=== PATIENT | male | born 1965 | race Caucasian/White ===

== ENCOUNTER 2018-07-31 06:02 | Inpatient (IN) | payer OTHER ==
[~2018-07-31] VITALS: Ht 170.2 cm; Wt 82.6 kg
[2018-07-31 06:44] LABS: BASO # 0.1 x10^3/uL (0.0-0.2); BASO % 1 % (0-3); EOS # 0.4 x10^3/uL (0.0-0.7); EOS % 2 % (0-3); HEMATOCRIT 50.8 % (39.0-53.0); HEMOGLOBIN 17.6 g/dL (13.0-17.5); LYMPH # 2.7 x10^3/uL (1.0-4.8); LYMPH % 17 % (24-48); MEAN CORPUSCULAR HEMOGLOBIN 31 pg (25-35); MEAN CORPUSCULAR HGB CONC 35 g/dL (31-37); MEAN CORPUSCULAR VOLUME 90 fL (79-100); MONO # 1.1 x10^3/uL (0.0-1.1); MONO % 7 % (0-9); NEUT # 11.7 x10^3uL (1.8-7.7); NEUT % 74 % (31-73); PLATELET COUNT 327 x10^3/uL (140-400); RED BLOOD COUNT 5.63 x10^6/uL (4.30-5.70); RED CELL DISTRIBUTION WIDTH 13.7 % (11.5-14.5)
[2018-07-31] MEDS ORDERED: ASPIRIN CHEWABLE 81 MG TABLET. PO ONE (06:45)
[2018-07-31] MEDS ORDERED: IV NORMAL SALINE 1000ML BAG 1,000 ML IV SCH (06:45)
[2018-07-31 06:47] LABS: CALCIUM 9.1 mg/dL (8.5-10.1); GFR 78.2; POTASSIUM 3.7 mmol/L (3.5-5.1)
--- NOTE | 2018-07-31 06:52 | RAD ---
PROCEDURE: PORTABLE CHEST 1V CLINICAL INDICATION: CHEST PAIN COMPARISON: None FINDINGS: No pneumothorax identified. Cardiac and mediastinal contours unremarkable. No pulmonary consolidation or acute airspace disease. No acute osseous abnormalities identified. IMPRESSION: No pulmonary consolidation or acute airspace disease. Electronically signed by: Leeroy Steele DO (07/31/2018 6:49 AM) [facility]
[2018-07-31 06:53] LABS: ALBUMIN/GLOBULIN RATIO 1.1 (1.0-1.7); MAGNESIUM 1.9 mg/dL (1.8-2.4); TOTAL BILIRUBIN 0.7 mg/dL (0.2-1.0); TOTAL PROTEIN 7.5 g/dL (6.4-8.2)
--- NOTE | 2018-07-31 06:59 | EKG ---
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
--- NOTE | 2018-07-31 07:23 | PHYS DOC ---
Past Medical History Past Medical History: Hypertension Past Surgical History: No Surgical History Alcohol Use: Occasionally Drug Use: None Adult General Chief Complaint Chief Complaint: CHEST PAIN HPI HPI Patient is a 53-year-old male who presents with complaint of chest pain and shortness of breath that started this morning between 3 and 4 AM. Patient states that his worst symptom is really the shortness of breath and states that before getting here he had gotten very short of breath at rest, feeling like he was not able to get enough air in. He indicates that the pain has been intermittent, lasting typically only a few seconds at a time and would spontaneously resolved. He states that the shortness of breath was not due to pain. He states that symptoms were worsened with just getting up and moving around in the house. He denies any nausea, vomiting or diaphoresis. He also denies any lower extremity pain or swelling. He denies cough or fever. Patient states that nothing improves his symptoms. Currently he denies any chest pain but states that at its worst it was about a 5 out of 10. Review of Systems Review of Systems Constitutional: Denies fever or chills [] Respiratory: Denies cough. Complains of shortness of breath [] Cardiovascular: No additional information not addressed in HPI [] GI: Denies abdominal pain, nausea, vomiting or diarrhea [] Musculoskeletal: Denies back pain or joint pain [] Integument: Denies rash or skin lesions [] All other systems were reviewed and found to be within normal limits, except as documented in this note. Current Medications Current Medications Current Medications Medications (Trade) Dose Ordered Sig/[facility] Start Time Stop Time Status Last Admin Dose Admin Aspirin (Children'S Aspirin) 324 mg 1X ONCE 07/31/18 06:45 07/31/18 06:46 DC 07/31/18 06:48 324 MG Sodium Chloride 1,000 ml @ 100 mls/hr Q10H 07/31/18 06:45 07/31/18 16:44 07/31/18 06:48 100 MLS/HR Allergies Allergies Allergies Coded Allergies Type Severity Reaction Last Updated Verified Penicillins Allergy Unknown 07/31/18 Yes Physical Exam Physical Exam Constitutional: Well developed, well nourished, no acute distress, non-toxic appearance. [] HENT: Normocephalic, atraumatic, bilateral external ears normal, oropharynx moist, no oral exudates, nose normal. [] Eyes: PERRLA, EOMI, conjunctiva normal, no discharge. [] Neck: Normal range of motion, no tenderness, supple, no stridor. [] Cardiovascular: Regular rate and rhythm[] Lungs & Thorax: Bilateral breath sounds clear to auscultation [] Abdomen: Bowel sounds normal, soft, no tenderness. [] Skin: Warm, dry, no erythema, no rash. [] Extremities: No tenderness, no cyanosis, no clubbing, ROM intact, no edema. [] Neurologic: Alert and oriented X 3, no focal deficits noted. [] Current Patient Data Vital Signs Vital Signs Date Time Temp Pulse Resp B/P (MAP) Pulse Ox O2 Delivery O2 Flow Rate FiO2 07/31/18 07:14 86 13 184/98 (126) 98 Room Air 07/31/18 06:07 98.6 98.6 Lab Values Laboratory Tests Test 07/31/18 06:09 White Blood Count 16.0 x10^3/uL (4.0-11.0) H Red Blood Count 5.63 x10^6/uL (4.30-5.70) Hemoglobin 17.6 g/dL (13.0-17.5) H Hematocrit 50.8 % (39.0-53.0) Mean Corpuscular Volume 90 fL (79-100) Mean Corpuscular Hemoglobin 31 pg (25-35) Mean Corpuscular Hemoglobin Concent 35 g/dL (31-37) Red Cell Distribution Width 13.7 % (11.5-14.5) Platelet Count 327 x10^3/uL (140-400) Neutrophils (%) (Auto) 74 % (31-73) H Lymphocytes (%) (Auto) 17 % (24-48) L Monocytes (%) (Auto) 7 % (0-9) Eosinophils (%) (Auto) 2 % (0-3) Basophils (%) (Auto) 1 % (0-3) Neutrophils # (Auto) 11.7 x10^3uL (1.8-7.7) H Lymphocytes # (Auto) 2.7 x10^3/uL (1.0-4.8) Monocytes # (Auto) 1.1 x10^3/uL (0.0-1.1) Eosinophils # (Auto) 0.4 x10^3/uL (0.0-0.7) Basophils # (Auto) 0.1 x10^3/uL (0.0-0.2) D-Dimer (Naima) 0.30 ug/mlFEU (0.00-0.50) Sodium Level 140 mmol/L (136-145) Potassium Level 3.7 mmol/L (3.5-5.1) Chloride Level 100 mmol/L (98-107) Carbon Dioxide Level 27 mmol/L (21-32) Anion Gap 13 (6-14) Blood Urea Nitrogen 15 mg/dL (8-26) Creatinine 1.0 mg/dL (0.7-1.3) Estimated GFR (Cockcroft-Gault) 78.2 BUN/Creatinine Ratio 15 (6-20) Glucose Level 108 mg/dL (70-99) H Calcium Level 9.1 mg/dL (8.5-10.1) Magnesium Level 1.9 mg/dL (1.8-2.4) Total Bilirubin 0.7 mg/dL (0.2-1.0) Aspartate Amino Transferase (AST) 27 U/L (15-37) Alanine Aminotransferase (ALT) 42 U/L (16-63) Alkaline Phosphatase 103 U/L (46-116) Troponin I Quantitative < 0.017 ng/mL (0.000-0.055) UP-Adf-A-Type Natriuretic Peptide 69 pg/mL (0-124) Total Protein 7.5 g/dL (6.4-8.2) Albumin 4.0 g/dL (3.4-5.0) Albumin/Globulin Ratio 1.1 (1.0-1.7) Lipase 535 U/L (73-393) H Laboratory Tests 07/31/18 06:09 Laboratory Tests 07/31/18 06:09 EKG EKG [] Interpretation Time: EKG demonstrates sinus tachycardia with rate of 102. Radiology/Procedures Radiology/Procedures [] Impressions: PROCEDURE: CHEST PA & LATERAL CHEST PA LATERAL CLINICAL INDICATION: CHEST PAIN COMPARISON: None FINDINGS: Heart is normal in size. Lungs are clear. No pneumothorax or pleural effusion. Visualized bony thorax within normal limits. IMPRESSION: No acute pulmonary process. Electronically signed by: Leeroy Steeel DO (07/31/2018 6:16 AM) [facility] Course & Med Decision Making Course & Med Decision Making Pertinent Labs and Imaging studies reviewed. (See chart for details) [] Dragon Disclaimer Dragon Disclaimer This electronic medical record was generated, in whole or in part, using a voice recognition dictation system. Departure Departure Impression: Primary Impression: Chest pain Additional Impression: Pancreatitis Disposition: 09 ADMITTED INPATIENT Admitting Physician: Other (Dr. Tamayo) Condition: IMPROVED Referrals: NO PCP (PCP) Problem Qualifiers Primary Impression: Chest pain Chest pain type: unspecified Qualified Codes: R07.9 - Chest pain, unspecified Additional Impression: Pancreatitis Chronicity: acute Pancreatitis type: unspecified pancreatitis type Acute pancreatitis complication: unspecified Qualified Codes: K85.90 - Acute pancreatitis without necrosis or infection, unspecified CADY SELBY Jr. DO July 31, 2018 07:23
[2018-07-31] MEDS ORDERED: MORPHINE SULFATE 2 MG/ML VIAL. IV PRN (07:45)
[2018-07-31] MEDS ORDERED: ONDANSETRON PF 4 MG/2 ML VIAL. IV PRN (07:45)
--- NOTE | 2018-07-31 07:46 | PDOC1 ---
History and Physical Date of Admission Date of Admission DATE: 07/31/18 TIME: 07:41 Identification/Chief Complaint Chief Complaint Shortness of breath, chest pain, abdominal pain Source Source: Patient History of Present Illness History of Present Illness Patient is a 53-year-old male who presents with complaint of chest pain and shortness of breath that started this morning between 3 and 4 AM. Patient states that his worst symptom is really the shortness of breath and states that before getting here he had gotten very short of breath at rest, feeling like he was not able to get enough air in. He indicates that the pain has been intermittent, lasting typically only a few seconds at a time and would spontaneously resolved. He states that the shortness of breath was not due to pain. He states that symptoms were worsened with just getting up and moving around in the house. He denies any nausea, vomiting or diaphoresis. He also denies any lower extremity pain or swelling. He denies cough or fever. Patient states that nothing improves his symptoms. Currently he denies any chest pain but states that at its worst it was about a 5 out of 10. EKG reveals sinus tachycardia at 102 bpm. Lipase 535. WBC 16K with left shift. CXR unrevealing. Current Medications Current Medications Current Medications Aspirin (Children'S Aspirin) 324 mg 1X ONCE PO Last administered on 07/31/18at 06:48; Start 07/31/18 at 06:45; Stop 07/31/18 at 06:46; Status DC Sodium Chloride 1,000 ml @ 100 mls/hr Q10H IV Last administered on 07/31/18at 06:48; Start 07/31/18 at 06:45; Stop 07/31/18 at 16:44 Allergies Allergies: Coded Allergies: Penicillins (Verified Allergy, Unknown, 07/31/18) ROS General: YES: Fatigue, Malaise; No: Chills, Night Sweats, Appetite, Other PSYCHOLOGICAL ROS: YES: Anxiety; No: Behavioral Disorder, Concentration difficultie, Decreased libido, Depression, Disorientation, Hallucinations, Hostility, Irritablity, Memory difficulties, Mood Swings, Obsessive thoughts, Physical abuse, Sexual abuse, Sleep disturbances, Suicidal ideation, Other Eyes: No Blurry vision, No Decreased vision, No Double vision, No Dry eyes, No Excessive tearing, No Eye Pain, No Itchy Eyes, No Loss of vision, No Photophobia, No Scotomata, No Uses contacts, No Uses glasses, No Other HEENT: No: Heacaches, Visual Changes, Hearing change, Nasal congestion, Nasal discharge, Oral lesions, Sinus pain, Sore Throat, Epistaxis, Sneezing, Snoring, Tinnitus, Vertigo, Vocal changes, Other ALLERGY AND IMMUNOLOGY: No: Hives, Insect Bite Sensitivity, Itchy/Watery Eyes, Nasal Congestion, Post Nasal Drip, Seasonal Allergies, Other Hematological and Lymphatic: No: Bleeding Problems, Blood Clots, Blood Transfusions, Brusing, Night Sweats, Pallor, Swollen Lymph Nodes, Other ENDOCRINE: No: Breast Changes, Galactorrhea, Hair Pattern Changes, Hot Flashes, Malaise/lethargy, Mood Swings, Palpitations, Polydipsia/polyuria, Skin Changes, Temperature Intolerance, Unexpected Weight Changes, Other Breast: No New/Changing Breast Lumps, No Nipple changes, No Nipple discharge, No Other Respiratory: YES: Pleuritic Pain, Shortness of breath; No: Cough, Hemoptysis, Orthopnea, SOB with excertion, Sputum Changes, Stridor, Tachypnea, Wheezing, Other Cardiovascular: yes Chest Pain; No Palpitations, No Orthopnea, No Paroxysmal Noc. Dyspnea, No Edema, No Lt Headedness, No Other Gastrointestinal: Yes Nausea; No Vomiting, No Abdominal Pain, No Diarrhea, No Constipation, No Melena, No Hematochezia, No Other Genitourinary: No Dysuria, No Frequency, No Incontinence, No Hematuria, No Re tention, No Discharge, No Urgency, No Pain, No Flank Pain, No Other, No , No , No , No , No , No , No Musculoskeletal: No Gait Disturbance, No Joint Pain, No Joint Stiffness, No Joint Swelling, No Muscle Pain, No Muscular Weakness, No Pain In:, No Swelling In:, No Other Neurological: No Behavorial Changes, No Bowel/Bladder ControlChng, No Confusion, No Dizziness, No Gait Disturbance, No Headaches, No Impaired Coord/balance, No Memory Loss, No Numbness/Tingling, No Seizures, No Speech Problems, No Tremors, No Visual Changes, No Weakness, No Other Skin: No Dry Skin, No Eczema, No Hair Changes, No Lumps, No Mole Changes, No Mottling, No Nail Changes, No Pruritus, No Rash, No Skin Lesion Changes, No Other, No Acne Physical Exam General: Alert, Oriented X3, Cooperative, No acute distress HEENT: PERRLA Lungs: Clear to auscultation, Normal air movement Heart: S1S2, RRR, no gallops, no murmurs Abdomen: Normal bowel sounds, Soft, No hepatosplenomegaly, No masses, Other (Epigastric tenderness) Rectal Exam: not examined Extremities: No clubbing, No cyanosis, No edema, Normal pulses, No tenderness/swelling Skin: No rashes, No breakdown, No significant lesion Neuro: Normal gait, Normal speech, Strength at 5/5 X4 ext, Normal tone, Sensation intact, Cranial nerves 3-12 NL, Reflexes 2+ Psych/Mental Status: Mental status NL, Mood NL Vitals Vitals Vital Signs Date Time Temp Pulse Resp B/P (MAP) Pulse Ox O2 Delivery O2 Flow Rate FiO2 07/31/18 07:14 86 13 184/98 (126) 98 Room Air 07/31/18 06:07 98.6 98.6 Labs Labs Laboratory Tests Test 07/31/18 06:09 White Blood Count 16.0 x10^3/uL (4.0-11.0) Red Blood Count 5.63 x10^6/uL (4.30-5.70) Hemoglobin 17.6 g/dL (13.0-17.5) Hematocrit 50.8 % (39.0-53.0) Mean Corpuscular Volume 90 fL (79-100) Mean Corpuscular Hemoglobin 31 pg (25-35) Mean Corpuscular Hemoglobin Concent 35 g/dL (31-37) Red Cell Distribution Width 13.7 % (11.5-14.5) Platelet Count 327 x10^3/uL (140-400) Neutrophils (%) (Auto) 74 % (31-73) Lymphocytes (%) (Auto) 17 % (24-48) Monocytes (%) (Auto) 7 % (0-9) Eosinophils (%) (Auto) 2 % (0-3) Basophils (%) (Auto) 1 % (0-3) Neutrophils # (Auto) 11.7 x10^3uL (1.8-7.7) Lymphocytes # (Auto) 2.7 x10^3/uL (1.0-4.8) Monocytes # (Auto) 1.1 x10^3/uL (0.0-1.1) Eosinophils # (Auto) 0.4 x10^3/uL (0.0-0.7) Basophils # (Auto) 0.1 x10^3/uL (0.0-0.2) D-Dimer (Naima) 0.30 ug/mlFEU (0.00-0.50) Sodium Level 140 mmol/L (136-145) Potassium Level 3.7 mmol/L (3.5-5.1) Chloride Level 100 mmol/L (98-107) Carbon Dioxide Level 27 mmol/L (21-32) Anion Gap 13 (6-14) Blood Urea Nitrogen 15 mg/dL (8-26) Creatinine 1.0 mg/dL (0.7-1.3) Estimated GFR (Cockcroft-Gault) 78.2 BUN/Creatinine Ratio 15 (6-20) Glucose Level 108 mg/dL (70-99) Calcium Level 9.1 mg/dL (8.5-10.1) Magnesium Level 1.9 mg/dL (1.8-2.4) Total Bilirubin 0.7 mg/dL (0.2-1.0) Aspartate Amino Transf (AST/SGOT) 27 U/L (15-37) Alanine Aminotransferase (ALT/SGPT) 42 U/L (16-63) Alkaline Phosphatase 103 U/L (46-116) Troponin I Quantitative < 0.017 ng/mL (0.000-0.055) BN-Uqn-E-Type Natriuretic Peptide 69 pg/mL (0-124) Total Protein 7.5 g/dL (6.4-8.2) Albumin 4.0 g/dL (3.4-5.0) Albumin/Globulin Ratio 1.1 (1.0-1.7) Lipase 535 U/L (73-393) Laboratory Tests Test 07/31/18 06:09 White Blood Count 16.0 x10^3/uL (4.0-11.0) Red Blood Count 5.63 x10^6/uL (4.30-5.70) Hemoglobin 17.6 g/dL (13.0-17.5) Hematocrit 50.8 % (39.0-53.0) Mean Corpuscular Volume 90 fL (79-100) Mean Corpuscular Hemoglobin 31 pg (25-35) Mean Corpuscular Hemoglobin Concent 35 g/dL (31-37) Red Cell Distribution Width 13.7 % (11.5-14.5) Platelet Count 327 x10^3/uL (140-400) Neutrophils (%) (Auto) 74 % (31-73) Lymphocytes (%) (Auto) 17 % (24-48) Monocytes (%) (Auto) 7 % (0-9) Eosinophils (%) (Auto) 2 % (0-3) Basophils (%) (Auto) 1 % (0-3) Neutrophils # (Auto) 11.7 x10^3uL (1.8-7.7) Lymphocytes # (Auto) 2.7 x10^3/uL (1.0-4.8) Monocytes # (Auto) 1.1 x10^3/uL (0.0-1.1) Eosinophils # (Auto) 0.4 x10^3/uL (0.0-0.7) Basophils # (Auto) 0.1 x10^3/uL (0.0-0.2) D-Dimer (Naima) 0.30 ug/mlFEU (0.00-0.50) Sodium Level 140 mmol/L (136-145) Potassium Level 3.7 mmol/L (3.5-5.1) Chloride Level 100 mmol/L (98-107) Carbon Dioxide Level 27 mmol/L (21-32) Anion Gap 13 (6-14) Blood Urea Nitrogen 15 mg/dL (8-26) Creatinine 1.0 mg/dL (0.7-1.3) Estimated GFR (Cockcroft-Gault) 78.2 BUN/Creatinine Ratio 15 (6-20) Glucose Level 108 mg/dL (70-99) Calcium Level 9.1 mg/dL (8.5-10.1) Magnesium Level 1.9 mg/dL (1.8-2.4) Total Bilirubin 0.7 mg/dL (0.2-1.0) Aspartate Amino Transf (AST/SGOT) 27 U/L (15-37) Alanine Aminotransferase (ALT/SGPT) 42 U/L (16-63) Alkaline Phosphatase 103 U/L (46-116) Troponin I Quantitative < 0.017 ng/mL (0.000-0.055) YQ-Ohi-T-Type Natriuretic Peptide 69 pg/mL (0-124) Total Protein 7.5 g/dL (6.4-8.2) Albumin 4.0 g/dL (3.4-5.0) Albumin/Globulin Ratio 1.1 (1.0-1.7) Lipase 535 U/L (73-393) Images Images CXR - No pulmonary consolidation or acute airspace disease. VTE Prophylaxis Ordered VTE Prophylaxis Devices: No VTE Pharmacological Prophylaxi: Yes Assessment/Plan Assessment/Plan A/P: Shortness of breath - negative d dimer, CXR, EKG. Pancreatitis could cause this 2/2 splinting. Chest pain - likely non-cardiac, however with age he is at risk, will trend troponins, telemetry. Cardiology to see, echo Abdominal pain - with nausea could be cardiac, but with lipase elevated this is pancreatitis, will give aggressive IVF, supportive care, NPO Leukocytosis - with tachycardia meets SIRS criteria, unclear if he has an infectious source Malignant HTN - add thiazide HLD - needs to consider statin in the future, lifestyle modification Tobacco abuse - counseled on cessation FEN - NPO --> Cardiac diet if he has appetite PPX - Lovenox FULL CODE Dispo - Inpatient for acute pancreatitis with SIRS, likely 2 midnights in BARBARA ROSALES MD July 31, 2018 07:46
[2018-07-31 08:22] LABS: CHOLESTEROL/HDL RATIO 4.7
[2018-07-31] MEDS ORDERED: LABETALOL 20 MG/4 ML DISP.SYRIN. IVP STA (08:32)
--- NOTE | 2018-07-31 09:00 | NUR ---
Patient arrived to room 262 from ER at 0900. Patient's girl friend at bedside. Patient A&OX4. No complaints of pain at this time. The patient, MARITO BRYANT, 53 y/o, M admitted by BARBARA ROSALES MD, was given written information regarding hospital policies, unit procedures and contact persons. Valuables were checked and noted. Will continue to monitor.
[2018-07-31] MEDS: IV NORMAL SALINE 1000ML BAG 1,000 ML IV SCH ×3 (09:15→21:57)
[2018-07-31 09:25] VITALS: BP 183/101
--- NOTE | 2018-07-31 09:33 | EKG ---
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 Electronically Signed On 07-31-2018 10:19:35 CDT by Chinedu Sheets
[2018-07-31] MEDS ORDERED: ASPI81TA50 PO (09:45)
[2018-07-31] MEDS ORDERED: GLUC-126 PO (09:45)
[2018-07-31] MEDS ORDERED: OMEP20TA63 PO (09:45)
[2018-07-31] MEDS ORDERED: MULT1TAB52 PO (09:45)
[2018-07-31] MEDS ORDERED: LOSA100T14 PO (09:45)
[2018-07-31 10:29] LABS: BARBITURATES NEG (NEG); BENZODIAZEPINES NEG (NEG); CANNABINOIDS NEG (NEG); COCAINE NEG (NEG); METHADONE NEG (NEG); OPIATES POS (NEG); PHENCYCLIDINE NEG (NEG)
[2018-07-31 10:30] LABS: AMPHETAMINE/METHAMPHETAMINE NEG (NEG)
--- NOTE | 2018-07-31 11:03 | PDOC2 ---
BRANDYN RIVAS HEARING EXAMINER 07/31/18 1103: CARDIAC CONSULT DATE OF CONSULT Date of Consult DATE: 07/31/18 TIME: 10:53 REASON FOR CONSULT Reason for Consult: Chest pain REFERRING PHYSICIAN Referring Physician: Cirilo SOURCE Source: Chart review, Patient HISTORY OF PRESENT ILLNESS HISTORY OF PRESENT ILLNESS This is a pleasant 53 yo male admitted for complains of chest pain. 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 No hx of CAD, arrhythmias. Reports that last night he was having intermittent stabbing chest pain described as sharp and intermittent lasting throughout the night but what worried him was pain going to his left shoulder and also feeling SOA. No heartburn or chronic NSAID use. Reports also with some nausea. No prior stress test and no prior cardiac workup. . PAST MEDICAL HISTORY Cardiovascular: HTN Pulmonary: No pertinent hx CENTRAL NERVOUS SYSTEM: Other (No pertinent history) GI: No pertinent hx, GERD Heme/Onc: No pertinent hx Hepatobiliary: No pertinent hx Psych: No pertinent hx Musculoskeletal: Osteoarthritis Rheumatologic: No pertinent hx Infectious disease: No pertinent hx ENT: No pertinent hx Renal/: No pertinent hx Endocrine: No pertinent hx Dermatology: No pertinent hx PAST SURGICAL HISTORY Past Surgical History: Other (toe surgery) FAMILY HISTORY Family History: Heart Disease (mother) SOCIAL HISTORY ALCOHOL: occassional Drugs: None Lives: with Family CURRENT MEDICATIONS CURRENT MEDICATIONS Current Medications Medications (Trade) Dose Ordered Sig/[place] Route PRN Reason Start Time Stop Time Status Last Admin Dose Admin Aspirin (Children'S Aspirin) 324 mg 1X ONCE PO 07/31/18 06:45 07/31/18 06:46 DC 07/31/18 06:48 Sodium Chloride 1,000 ml @ 100 mls/hr Q10H IV 07/31/18 06:45 07/31/18 16:44 07/31/18 06:48 Ondansetron HCl (Zofran) 4 mg PRN Q8HRS PRN IV NAUSEA/VOMITING 07/31/18 07:45 08/01/18 07:44 07/31/18 08:16 Morphine Sulfate (Morphine Sulfate) 2 mg PRN Q2HR PRN IV PAIN 07/31/18 07:45 08/01/18 07:44 07/31/18 08:17 Sodium Chloride 1,000 ml @ 125 mls/hr Q8H IV 07/31/18 08:00 08/01/18 07:59 07/31/18 09:15 Labetalol HCl (Normodyne Iv Push) 10 mg 1X STAT IVP 07/31/18 08:32 07/31/18 08:34 DC 07/31/18 08:40 ALLERGIES ALLERGIES: Coded Allergies: Penicillins (Verified Allergy, Intermediate, 07/31/18) ROS Review of System 14 point ROS evaluated with pertinent positives noted per HPI PHYSICAL EXAM General: Alert, Oriented X3, Cooperative, No acute distress HEENT: Atraumatic, Mucous membr. moist/pink Lungs: Clear to auscultation, Normal air movement Heart: Regular rate (SR), Normal S1, Normal S2, No murmurs Abdomen: Soft, No tenderness Extremities: No cyanosis, No edema Skin: No breakdown, No significant lesion Neuro: Normal speech, Sensation intact Psych/Mental Status: Mood NL MUSCULOSKELETAL: Osteoarthritic changes both hands VITALS VITALS Vital Signs Date Time Temp Pulse Resp B/P (MAP) Pulse Ox O2 Delivery O2 Flow Rate FiO2 07/31/18 09:25 98.0 81 18 183/101 (128) 96 Room Air 98.0 LABS Lab: Laboratory Tests Test 07/31/18 06:09 07/31/18 09:23 07/31/18 10:00 White Blood Count 16.0 x10^3/uL (4.0-11.0) Red Blood Count 5.63 x10^6/uL (4.30-5.70) Hemoglobin 17.6 g/dL (13.0-17.5) Hematocrit 50.8 % (39.0-53.0) Mean Corpuscular Volume 90 fL (79-100) Mean Corpuscular Hemoglobin 31 pg (25-35) Mean Corpuscular Hemoglobin Concent 35 g/dL (31-37) Red Cell Distribution Width 13.7 % (11.5-14.5) Platelet Count 327 x10^3/uL (140-400) Neutrophils (%) (Auto) 74 % (31-73) Lymphocytes (%) (Auto) 17 % (24-48) Monocytes (%) (Auto) 7 % (0-9) Eosinophils (%) (Auto) 2 % (0-3) Basophils (%) (Auto) 1 % (0-3) Neutrophils # (Auto) 11.7 x10^3uL (1.8-7.7) Lymphocytes # (Auto) 2.7 x10^3/uL (1.0-4.8) Monocytes # (Auto) 1.1 x10^3/uL (0.0-1.1) Eosinophils # (Auto) 0.4 x10^3/uL (0.0-0.7) Basophils # (Auto) 0.1 x10^3/uL (0.0-0.2) D-Dimer (Naima) 0.30 ug/mlFEU (0.00-0.50) Sodium Level 140 mmol/L (136-145) Potassium Level 3.7 mmol/L (3.5-5.1) Chloride Level 100 mmol/L (98-107) Carbon Dioxide Level 27 mmol/L (21-32) Anion Gap 13 (6-14) Blood Urea Nitrogen 15 mg/dL (8-26) Creatinine 1.0 mg/dL (0.7-1.3) Estimated GFR (Cockcroft-Gault) 78.2 BUN/Creatinine Ratio 15 (6-20) Glucose Level 108 mg/dL (70-99) Calcium Level 9.1 mg/dL (8.5-10.1) Magnesium Level 1.9 mg/dL (1.8-2.4) Total Bilirubin 0.7 mg/dL (0.2-1.0) Aspartate Amino Transf (AST/SGOT) 27 U/L (15-37) Alanine Aminotransferase (ALT/SGPT) 42 U/L (16-63) Alkaline Phosphatase 103 U/L (46-116) Troponin I Quantitative < 0.017 ng/mL (0.000-0.055) < 0.017 ng/mL (0.000-0.055) CW-Sjd-T-Type Natriuretic Peptide 69 pg/mL (0-124) Total Protein 7.5 g/dL (6.4-8.2) Albumin 4.0 g/dL (3.4-5.0) Albumin/Globulin Ratio 1.1 (1.0-1.7) Triglycerides Level 127 mg/dL (0-150) Cholesterol Level 218 mg/dL (0-200) LDL Cholesterol, Calculated 147 mg/dL (0-100) VLDL Cholesterol, Calculated 25 mg/dL (0-40) Non-HDL Cholesterol Calculated 172 mg/dL (0-129) HDL Cholesterol 46 mg/dL (40-60) Cholesterol/HDL Ratio 4.7 Lipase 535 U/L (73-393) Thyroid Stimulating Hormone (TSH) 5.787 uIU/mL (0.358-3.74) Urine Opiates Screen Pos (NEG) Urine Methadone Screen Neg (NEG) Urine Barbiturates Neg (NEG) Urine Phencyclidine Screen Neg (NEG) Urine Amphetamine/Methamphetamine Neg (NEG) Urine Benzodiazepines Screen Neg (NEG) Urine Cocaine Screen Neg (NEG) Urine Cannabinoids Screen Neg (NEG) Urine Ethyl Alcohol Neg (NEG) ASSESSMENT/PLAN ASSESSMENT/PLAN 1. Chest pain: mixed features 2. Malignant HTN 3. HLP: new finding 4. Tobaccoism 5. Subclinical hypothyroidism 6. Metabolic syndrome with elevated lipase and leukocytosis. No abd pain. Recommendations 1. TTE 2. ASA. Concerning of ischemia with notable abnormality to EKG, will discuss with primary crane service technician 3. Start on statin. Continue with home losartan and add chlothalidone. Norvasc x1, labetolol IV PRN MILY ARREOLA MD 07/31/18 1736: CARDIAC CONSULT ASSESSMENT/PLAN ASSESSMENT/PLAN Patient seen and examined Chest pain. Somewhat atypical for for cardiac etiology. Echo with normal LV systolic function. No acute EKG changes. Troponins normal. We'll continue to monitor. Evaluation for pancreatitis as below. Malignant hypertension. Improving on present medications. We'll continue to monitor. Hyperlipidemia. Statin medications. Pancreatitis. Workup in progress. Thank you for allowing us to participate in the care of your patient. BRANDYN RIVAS APRN July 31, 2018 11:03 MILY ARREOLA MD July 31, 2018 17:36
[2018-07-31] MEDS ORDERED: amLODIPine BESYLATE 5 MG TABLET PO ONE (11:30)
[2018-07-31] MEDS: CHLORTHALIDONE 25 MG TABLET. PO SCH (11:48)
[2018-07-31] MEDS: LOSARTAN POTASSIUM 50 MG TABLET. PO SCH (11:49)
--- NOTE | 2018-07-31 12:08 | CARD ---
MR#: [id number] Date of Study: 07/31/2018 Ordering Physician: BRANDYN RIVAS, Referring Physician: BARBARA ROSALES, Tech: Xiomara Cobian [facility] APPROVED REPORT EXAM: Two-dimensional and M-mode echocardiogram with Doppler and color Doppler. Other Information Quality : AverageHR: 87bpm Rhythm : NSR INDICATION Chest Pain 2D DIMENSIONS RVDd2.9 (2.9-3.5cm)Left Atrium(2D)3.4 (1.6-4.0cm) IVSd1.2 (0.7-1.1cm)Aortic Root(2D)3.1 (2.0-3.7cm) LVDd4.1 (3.9-5.9cm)LVOT Diameter2.2 (1.8-2.4cm) PWd1.0 (0.7-1.1cm)LVDs2.6 (2.5-4.0cm) FS (%) 37.7 %SV51.9 ml LVEF(%)65.0 (>50%) M-Mode DIMENSIONS Left Atrium(MM)3.92 (2.5-4.0cm)Aortic Root3.40 (2.2-3.7cm) Aortic Valve AoV Peak Christian.124.9cm/sAoV VTI24.4cm AO Peak GR.6.2mmHgLVOT Peak Christian.85.4cm/s AO Mean GR.4mmHgAVA (VMAX)2.68cm2 DEBO (VTI)2.60cm2 Mitral Valve MV E Ozrmcwva82.2cm/sMV DECEL GKAK725mv MV A Qvhiehbp68.2cm/sE/A Ratio0.9 MV A Glqpwtwz15iz Pulmonary Valve PV Peak Quawkldh172.1cm/s LEFT VENTRICLE The left ventricle is normal size. There is borderline to mild concentric left ventricular hypertroph y. The left ventricular systolic function is normal. The Ejection Fraction is 60-65%. There is normal LV segmental wall motion. RIGHT VENTRICLE The right ventricle is normal size. There is normal right ventricular wall thickness. The right ventr icular systolic function is normal. ATRIA The left atrium size is normal. The right atrium size is normal. The interatrial septum is intact wit h no evidence for an atrial septal defect or patent foramen ovale as noted on 2-D or Doppler imaging. AORTIC VALVE The aortic valve is normal in structure and function. The aortic valve is trileaflet. Doppler and Col or Flow revealed no significant aortic regurgitation. There is no significant aortic valvular stenosi s. There is no aortic valvular vegetation. MITRAL VALVE The mitral valve is normal in structure and function. There is no evidence of mitral valve prolapse. There is no mitral valve stenosis. Doppler and Color-flow revealed trace mitral regurgitation. TRICUSPID VALVE The tricuspid valve is normal in structure and function. Doppler and Color Flow revealed no tricuspid valve regurgitation noted. There is no tricuspid valve prolapse or vegetation. There is no tricuspid valve stenosis. PULMONIC VALVE The pulmonic valve is not well visualized. GREAT VESSELS The aortic root is normal in size. The ascending aorta is normal in size. The IVC is normal in size a nd collapses >50% with inspiration. PERICARDIAL EFFUSION There is no evidence of significant pericardial effusion. Critical Notification Critical Value: No <Conclusion> The left ventricular systolic function is normal. The Ejection Fraction is 60-65%. There is normal LV segmental wall motion. Doppler and Color-flow revealed trace mitral regurgitation. There is no evidence of significant pericardial effusion. Signed by : Lucio Raymundo, Electronically Approved : 07/31/2018 12:07:53
[2018-07-31] MEDS ORDERED: LOSARTAN POTASSIUM 50 MG TABLET. PO SCH (13:00)
[2018-07-31] MEDS: MULTIVITAMIN with MINERAL TABLET. PO SCH (13:00)
--- NOTE | 2018-07-31 13:05 | EKG ---
[facility] [address] [place] [address] Test Date: 2018-07-31 Test Time: 12:55:19 Pat Name: MARITO BRYANT Department: Room: 262 1 Gender: M Technology Assistant: AT : 1965 Requested By: MILY ARREOLA Order Number: [id number] Reading MD: Sohail Hernandez MD Measurements Intervals [place] Rate: 84 P: 54 HI: 146 QRS: 26 QRSD: 68 T: 42 QT: 370 QTc: 440 Interpretive Statements SINUS RHYTHM CONSIDER PRIOR ANTEROSEPTAL INFARCT VERSUS LEAD PLACEMENT Electronically Signed On 08-04-2018 13:56:42 CDT by Sohail Hernandez MD
[2018-07-31 15:00] VITALS: BP 177/113
--- NOTE | 2018-07-31 15:49 | RAD ---
EXAM: Abdomen sonogram. HISTORY: Pain. TECHNIQUE: Sonographic imaging of the abdomen was performed. COMPARISON: None. FINDINGS: There is hepatic steatosis and hepatomegaly. No focal hepatic lesion is seen. The gallbladder is unremarkable. The common bile duct is normal in caliber. The kidneys are unremarkable. The spleen, pancreas, aorta and inferior vena cava are partially obscured due to bowel gas. IMPRESSION: 1. Hepatic steatosis and hepatomegaly. 2. Limited exam due to bowel gas. Electronically signed by: Ghazal Ga MD (07/31/2018 3:46 PM) [id number]
[2018-07-31 18:33] VITALS: BP 170/99
[2018-07-31] MEDS ORDERED: diphenhydrAMINE HCL 25 MG CAPSULE PO PRN (19:30)
[2018-07-31] MEDS: ATORVASTATIN CALCIUM 20 MG TABLET PO SCH (20:19)
[2018-07-31] MEDS: LABETALOL 20 MG/4 ML DISP.SYRIN. IVP PRN (21:54)
[2018-07-31 23:48] VITALS: BP 164/101
[2018-08-01] VITALS (7 sets, daily range): BP systolic 135–196; BP diastolic 80–107
[2018-08-01] MEDS ORDERED: PANTOPRAZOLE 40 MG TABLET.DR. PO PRN (07:30)
--- NOTE | 2018-08-01 07:55 | PDOC ---
PROGRESS NOTES History of Present Illness History of Present Illness VTE Prophylaxis Ordered VTE Prophylaxis Devices: No VTE Pharmacological Prophylaxi: Yes Assessment/Plan Assessment/Plan A/P: Shortness of breath - negative d dimer, CXR, EKG. Pancreatitis could cause this 2/2 splinting. Chest pain - likely non-cardiac, however with age he is at risk, will trend troponins, telemetry. Cardiology to see, echo Abdominal pain - with nausea could be cardiac, but with lipase elevated this is pancreatitis, will give aggressive IVF, supportive care, NPO Leukocytosis - with tachycardia meets SIRS criteria, unclear if he has an infectious source Malignant HTN - add thiazide HLD - needs to consider statin in the future, lifestyle modification Tobacco abuse - counseled on cessation Malignant hypertension. FEN - NPO --> Cardiac diet if he has appetite PPX - Lovenox FULL CODE Dispo - Inpatient for acute pancreatitis with SIRS, likely 2 midnights in GI CONSULT 43 min pt exam, chart review, > 50% of time spent with exam, chart review, pt care coordination Vitals Vitals Vital Signs Date Time Temp Pulse Resp B/P (MAP) Pulse Ox O2 Delivery O2 Flow Rate FiO2 08/01/18 03:30 98.0 98 17 144/90 (108) 95 Room Air 98.0 Physical Exam General: Alert, Oriented X3, Cooperative, No acute distress Heart: Regular rate (SR), Normal S1, Normal S2, No murmurs Lungs: Clear Abdomen: Normal bowel sounds, Soft, No hepatosplenomegaly, No masses, Other (Epigastric tenderness) Extremities: No clubbing, No cyanosis, No edema, Normal pulses, No tenderness/swelling Skin: No rashes, No breakdown, No significant lesion Labs LABS LEFT VENTRICLE The left ventricle is normal size. There is borderline to mild concentric left ventricular hypertrophy. The left ventricular systolic function is normal. The Ejection Fraction is 60-65%. There is normal LV segmental wall motion. RIGHT VENTRICLE The right ventricle is normal size. There is normal right ventricular wall thickness. The right ventricular systolic function is normal. ATRIA The left atrium size is normal. The right atrium size is normal. The interatrial septum is intact with no evidence for an atrial septal defect or patent foramen ovale as noted on 2-D or Doppler imaging. AORTIC VALVE The aortic valve is normal in structure and function. The aortic valve is trileaflet. Doppler and Color Flow revealed no significant aortic regurgitation. There is no significant aortic valvular stenosis. There is no aortic valvular vegetation. MITRAL VALVE The mitral valve is normal in structure and function. There is no evidence of mitral valve prolapse. There is no mitral valve stenosis. Doppler and Color-flow revealed trace mitral regurgitation. TRICUSPID VALVE The tricuspid valve is normal in structure and function. Doppler and Color Flow revealed no tricuspid valve regurgitation noted. There is no tricuspid valve prolapse or vegetation. There is no tricuspid valve stenosis. PULMONIC VALVE The pulmonic valve is not well visualized. GREAT VESSELS The aortic root is normal in size. The ascending aorta is normal in size. The IVC is normal in size and collapses >50% with inspiration. PERICARDIAL EFFUSION There is no evidence of significant pericardial effusion. Critical Notification Critical Value: No <Conclusion> The left ventricular systolic function is normal. The Ejection Fraction is 60-65%. There is normal LV segmental wall motion. Doppler and Color-flow revealed trace mitral regurgitation. There is no evidence of significant pericardial effusion. Signed by : Matty Raymundo, Electronically Approved : 07/31/2018 12:07:53 DICTATED and SIGNED BY: MATTY RAYMUNDO MD DATE: 07/31/18 1207 MTH0 0 [id number] 109 Laboratory Tests Test 07/31/18 09:23 07/31/18 10:00 07/31/18 13:33 Troponin I Quantitative < 0.017 ng/mL (0.000-0.055) < 0.017 ng/mL (0.000-0.055) Urine Opiates Screen Pos (NEG) Urine Methadone Screen Neg (NEG) Urine Barbiturates Neg (NEG) Urine Phencyclidine Screen Neg (NEG) Urine Amphetamine/Methamphetamine Neg (NEG) Urine Benzodiazepines Screen Neg (NEG) Urine Cocaine Screen Neg (NEG) Urine Cannabinoids Screen Neg (NEG) Urine Ethyl Alcohol Neg (NEG) Assessment and Plan Assessmemt and Plan Problems Medical Problems: (1) Chest pain Status: Acute (2) Pancreatitis Status: Acute Comment Review of Relevant I have reviewed the following items rose (where applicable) has been applied. Labs Laboratory Tests Test 07/31/18 06:09 07/31/18 09:23 07/31/18 10:00 07/31/18 13:33 White Blood Count 16.0 x10^3/uL (4.0-11.0) Red Blood Count 5.63 x10^6/uL (4.30-5.70) Hemoglobin 17.6 g/dL (13.0-17.5) Hematocrit 50.8 % (39.0-53.0) Mean Corpuscular Volume 90 fL (79-100) Mean Corpuscular Hemoglobin 31 pg (25-35) Mean Corpuscular Hemoglobin Concent 35 g/dL (31-37) Red Cell Distribution Width 13.7 % (11.5-14.5) Platelet Count 327 x10^3/uL (140-400) Neutrophils (%) (Auto) 74 % (31-73) Lymphocytes (%) (Auto) 17 % (24-48) Monocytes (%) (Auto) 7 % (0-9) Eosinophils (%) (Auto) 2 % (0-3) Basophils (%) (Auto) 1 % (0-3) Neutrophils # (Auto) 11.7 x10^3uL (1.8-7.7) Lymphocytes # (Auto) 2.7 x10^3/uL (1.0-4.8) Monocytes # (Auto) 1.1 x10^3/uL (0.0-1.1) Eosinophils # (Auto) 0.4 x10^3/uL (0.0-0.7) Basophils # (Auto) 0.1 x10^3/uL (0.0-0.2) D-Dimer (Naima) 0.30 ug/mlFEU (0.00-0.50) Sodium Level 140 mmol/L (136-145) Potassium Level 3.7 mmol/L (3.5-5.1) Chloride Level 100 mmol/L (98-107) Carbon Dioxide Level 27 mmol/L (21-32) Anion Gap 13 (6-14) Blood Urea Nitrogen 15 mg/dL (8-26) Creatinine 1.0 mg/dL (0.7-1.3) Estimated GFR (Cockcroft-Gault) 78.2 BUN/Creatinine Ratio 15 (6-20) Glucose Level 108 mg/dL (70-99) Calcium Level 9.1 mg/dL (8.5-10.1) Magnesium Level 1.9 mg/dL (1.8-2.4) Total Bilirubin 0.7 mg/dL (0.2-1.0) Aspartate Amino Transf (AST/SGOT) 27 U/L (15-37) Alanine Aminotransferase (ALT/SGPT) 42 U/L (16-63) Alkaline Phosphatase 103 U/L (46-116) Troponin I Quantitative < 0.017 ng/mL (0.000-0.055) < 0.017 ng/mL (0.000-0.055) < 0.017 ng/mL (0.000-0.055) DR-Dza-B-Type Natriuretic Peptide 69 pg/mL (0-124) Total Protein 7.5 g/dL (6.4-8.2) Albumin 4.0 g/dL (3.4-5.0) Albumin/Globulin Ratio 1.1 (1.0-1.7) Triglycerides Level 127 mg/dL (0-150) Cholesterol Level 218 mg/dL (0-200) LDL Cholesterol, Calculated 147 mg/dL (0-100) VLDL Cholesterol, Calculated 25 mg/dL (0-40) Non-HDL Cholesterol Calculated 172 mg/dL (0-129) HDL Cholesterol 46 mg/dL (40-60) Cholesterol/HDL Ratio 4.7 Lipase 535 U/L (73-393) Thyroid Stimulating Hormone (TSH) 5.787 uIU/mL (0.358-3.74) Urine Opiates Screen Pos (NEG) Urine Methadone Screen Neg (NEG) Urine Barbiturates Neg (NEG) Urine Phencyclidine Screen Neg (NEG) Urine Amphetamine/Methamphetamine Neg (NEG) Urine Benzodiazepines Screen Neg (NEG) Urine Cocaine Screen Neg (NEG) Urine Cannabinoids Screen Neg (NEG) Urine Ethyl Alcohol Neg (NEG) Laboratory Tests Test 07/31/18 09:23 07/31/18 10:00 07/31/18 13:33 Troponin I Quantitative < 0.017 ng/mL (0.000-0.055) < 0.017 ng/mL (0.000-0.055) Urine Opiates Screen Pos (NEG) Urine Methadone Screen Neg (NEG) Urine Barbiturates Neg (NEG) Urine Phencyclidine Screen Neg (NEG) Urine Amphetamine/Methamphetamine Neg (NEG) Urine Benzodiazepines Screen Neg (NEG) Urine Cocaine Screen Neg (NEG) Urine Cannabinoids Screen Neg (NEG) Urine Ethyl Alcohol Neg (NEG) Medications Current Medications Aspirin (Children'S Aspirin) 324 mg 1X ONCE PO Last administered on 07/31/18 06:48; Start 07/31/18 at 06:45; Stop 07/31/18 at 06:46; Status DC Sodium Chloride 1,000 ml @ 100 mls/hr Q10H IV Last administered on 07/31/18 06:48; Start 07/31/18 at 06:45; Stop 07/31/18 at 12:40; Status DC Ondansetron HCl (Zofran) 4 mg PRN Q8HRS PRN IV NAUSEA/VOMITING Last administered on 07/31/18 08:16; Start 07/31/18 at 07:45; Stop 08/01/18 at 07:44; Status DC Morphine Sulfate (Morphine Sulfate) 2 mg PRN Q2HR PRN IV PAIN Last administered on 07/31/18 08:17; Start 07/31/18 at 07:45; Stop 08/01/18 at 07:44; Status DC Sodium Chloride 1,000 ml @ 125 mls/hr Q8H IV Last administered on 07/31/18 21:57; Start 07/31/18 at 08:00; Stop 08/01/18 at 07:59 Labetalol HCl (Normodyne Iv Push) 10 mg 1X STAT IVP Last administered on 07/31/18 08:40; Start 07/31/18 at 08:32; Stop 07/31/18 at 08:34; Status DC Atorvastatin Calcium (Lipitor) 20 mg QHS PO Last administered on 07/31/18 20:19; Start 07/31/18 at 21:00 Aspirin (Ecotrin) 81 mg DAILYWBKFT PO ; Start 08/01/18 at 08:00 Losartan Potassium (Cozaar) 100 mg DAILY PO Last administered on 07/31/18 11:49; Start 07/31/18 at 11:30 Labetalol HCl (Normodyne Iv Push) 20 mg PRN Q2HR PRN IVP HYPERTENSION, SEE COMMENTS Last administered on 07/31/18 21:54; Start 07/31/18 at 11:00 Chlorthalidone (Thalitone) 25 mg DAILY PO Last administered on 07/31/18 11:48; Start 07/31/18 at 11:30 Amlodipine Besylate (Norvasc) 5 mg 1X ONCE PO Last administered on 07/31/18at 11:49; Start 07/31/18 at 11:30; Stop 07/31/18 at 11:31; Status DC Pantoprazole Sodium (Protonix) 40 mg PRN DAILY PRN PO HEARTBURN / GAS; Start 08/01/18 at 07:30 Non-Formulary Medication (Glucosam/Chond/ Hyalu/Cf Borate (Move Free Joint Health Tablet)) 1 each DAILY PO ; Start 08/01/18 at 09:00; Status UNV Multivitamins (Thera M Plus) 1 tab DAILY PO ; Start 07/31/18 at 13:00 Losartan Potassium (Cozaar) 100 mg DAILY PO ; Start 07/31/18 at 13:00; Status Cancel Diphenhydramine HCl (Benadryl) 25 mg PRN QHS PRN PO INSOMNIA Last administered on 07/31/18at 20:19; Start 07/31/18 at 19:30 Active Scripts Active Reported Prilosec Otc (Omeprazole Magnesium) 20 Mg Tablet.dr 1 Tab PO PRN DAILY PRN Move Free Joint Health Tablet (Glucosam/Chond/Hyalu/Cf Borate) 1 Each Tablet 1 Each PO DAILY Aspir-Low (Aspirin) 81 Mg Tablet. 1 Tab PO DAILY Multivitamins (Multivitamin) 1 Each Tablet 1 Tab PO DAILY Losartan Potassium 100 Mg Tablet 100 Mg PO DAILY Vitals/I & O Vital Sign - Last 24 Hours 07/31/18 07/31/18 07/31/18 07/31/18 08:17 08:40 08:47 08:47 Pulse 83 80 Resp 16 14 B/P (MAP) 189/100 159/96 (117) Pulse Ox 99 97 O2 Delivery Room Air Room Air Room Air 07/31/18 07/31/18 07/31/18 07/31/18 09:10 09:25 11:49 11:49 Temp 98.0 98.0 Pulse 81 79 83 Resp 18 B/P (MAP) 183/101 (128) 201/110 201/110 Pulse Ox 96 O2 Delivery Room Air Room Air 07/31/18 07/31/18 07/31/18 07/31/18 15:00 18:33 20:00 21:54 Temp 97.7 97.7 Pulse 83 91 86 Resp 18 B/P (MAP) 177/113 (134) 170/99 (122) 184/97 Pulse Ox 97 O2 Delivery Room Air Room Air Room Air 07/31/18 08/01/18 23:48 03:30 Temp 97.9 98.0 97.9 98.0 Pulse 84 98 Resp 17 17 B/P (MAP) 164/101 (122) 144/90 (108) Pulse Ox 96 95 O2 Delivery Room Air Room Air Intake and Output 07/31/18 07/31/18 08/01/18 15:00 23:00 07:00 Intake Total 1000 ml 1320 ml Output Total 500 ml 650 ml Balance 1000 ml -500 ml 670 ml MARIO ESCOBAR MD August 01, 2018 07:55
[2018-08-01] MEDS: ASPIRIN ENTERIC COATED 81 MG TABLET.DR. PO SCH (08:29)
[2018-08-01] MEDS: MULTIVITAMIN with MINERAL TABLET. PO SCH (08:29)
[2018-08-01] MEDS: CHLORTHALIDONE 25 MG TABLET. PO SCH (08:29)
[2018-08-01] MEDS: LOSARTAN POTASSIUM 50 MG TABLET. PO SCH (08:30)
[2018-08-01] MEDS ORDERED: [UNRECOGNIZED DRUG - REMARK] PO SCH (09:00)
[2018-08-01 10:03] LABS: BASO # 0.1 x10^3/uL (0.0-0.2); BASO % 1 % (0-3); EOS # 0.3 x10^3/uL (0.0-0.7); EOS % 3 % (0-3); HEMATOCRIT 46.1 % (39.0-53.0); HEMOGLOBIN 15.6 g/dL (13.0-17.5); LYMPH # 2.1 x10^3/uL (1.0-4.8); LYMPH % 23 % (24-48); MEAN CORPUSCULAR HEMOGLOBIN 31 pg (25-35); MEAN CORPUSCULAR HGB CONC 34 g/dL (31-37); MEAN CORPUSCULAR VOLUME 91 fL (79-100); MONO # 0.6 x10^3/uL (0.0-1.1); MONO % 7 % (0-9); NEUT # 6.2 x10^3uL (1.8-7.7); NEUT % 66 % (31-73); PLATELET COUNT 300 x10^3/uL (140-400); RED BLOOD COUNT 5.09 x10^6/uL (4.30-5.70); RED CELL DISTRIBUTION WIDTH 13.6 % (11.5-14.5); WHITE BLOOD COUNT 9.3 x10^3/uL (4.0-11.0)
[2018-08-01] MEDS ORDERED: IOHEXOL 300 MG/ML 100ML VIAL. IV ONE (10:30)
[2018-08-01] MEDS ORDERED: CONTRAST GIVEN. MC PRN (10:30)
[2018-08-01 10:33] LABS: ALBUMIN 3.3 g/dL (3.4-5.0); CALCIUM 8.7 mg/dL (8.5-10.1); CREATININE 0.9 mg/dL (0.7-1.3); GFR 88.3; POTASSIUM 3.3 mmol/L (3.5-5.1); TOTAL BILIRUBIN 0.6 mg/dL (0.2-1.0); TOTAL PROTEIN 6.5 g/dL (6.4-8.2)
--- NOTE | 2018-08-01 10:57 | RAD ---
EXAM: Abdomen and pelvis CT with intravenous contrast. HISTORY: Pain. Pancreatitis. TECHNIQUE: Computed tomographic images of the abdomen and pelvis were obtained following the administration of 100 cc Isovue 370 intravenous contrast. Multiplanar reformatting was performed. *One or more of the following individualized dose reduction techniques were utilized for this examination: 1. Automated exposure control. 2. Adjustment of the mA and/or kV according to patient size. 3. Use of iterative reconstruction technique. COMPARISON: None. FINDINGS: Evaluation of the lower thorax is unremarkable. There is hepatic steatosis. No suspicious hepatic lesion is seen. The gallbladder, pancreas and adrenal glands are unremarkable. There is a splenule anterior to the spleen. There are few splenic granulomas. The spleen is normal in size. The kidneys are unremarkable. The appendix is normal in appearance. No abnormally thickened or dilated loop of bowel is seen. The urinary bladder is unremarkable. There is no lymphadenopathy. There is a tiny fat-containing left periumbilical hernia. There are degenerative changes involving the lumbar spine. 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 IMPRESSION: 1. No acute abdominal or pelvic finding. 2. Hepatic steatosis. Electronically signed by: Ghazal Ga MD (08/01/2018 10:54 AM) [facility]
[2018-08-01] MEDS: LABETALOL 20 MG/4 ML DISP.SYRIN. IVP PRN (11:41)
--- NOTE | 2018-08-01 11:58 | PDOC2 ---
GI CONSULT Reason For Consult: Pancreatitis HPI: HPI: Elgin Bryant is a 53 years old male patient with past medical history of hypertension, hyperlipidemia and tobacco use disorder. He is currently admitted to the hospital after he presented with complaint of chest pain and shortness of breath. GI now consulted with concern of pancreatitis with reported epigastric abdominal pain and elevated lipase ( 535). However, imaging of abdomen and pelvis with CT obtained on 08/01/2018 was notable for unremarkable pancreas with no evidence of inflammations,edema or fluid collections. Patient currently denies any symptoms. No chest pain, sob or PND. No nausea, vomiting or abdominal pain. He denies fever, chills or sweating. No nausea, vomiting or hematemesis. No change in bowel habits. No melena or hematochezia. He smokes cigarettes but denies drinking alcohols. He has not had screening colonoscopy in the past. Social History: ALCOHOL: occassional Drugs: None ROS: GEN: Denies fevers, chills, sweats HEENT: Denies blurred vision, sore throat CV: Denies chest pain RESP: Denies shortness of air, cough GI: Per HPI : Denies hematuria, dysuria ENDO: Denies weight changes NEURO: Denies confusion, dizziness MSK: Denies weakness, joint pain/swelling SKIN: Denies jaundice, pruritus Vitals: Vitals: Vital Signs Date Time Temp Pulse Resp B/P (MAP) Pulse Ox O2 Delivery O2 Flow Rate FiO2 08/01/18 11:41 76 211/113 08/01/18 10:52 98.0 17 99 Room Air 98.0 Labs: Labs: Laboratory Tests Test 07/31/18 13:33 08/01/18 09:55 Troponin I Quantitative < 0.017 ng/mL (0.000-0.055) White Blood Count 9.3 x10^3/uL (4.0-11.0) Red Blood Count 5.09 x10^6/uL (4.30-5.70) Hemoglobin 15.6 g/dL (13.0-17.5) Hematocrit 46.1 % (39.0-53.0) Mean Corpuscular Volume 91 fL (79-100) Mean Corpuscular Hemoglobin 31 pg (25-35) Mean Corpuscular Hemoglobin Concent 34 g/dL (31-37) Red Cell Distribution Width 13.6 % (11.5-14.5) Platelet Count 300 x10^3/uL (140-400) Neutrophils (%) (Auto) 66 % (31-73) Lymphocytes (%) (Auto) 23 % (24-48) Monocytes (%) (Auto) 7 % (0-9) Eosinophils (%) (Auto) 3 % (0-3) Basophils (%) (Auto) 1 % (0-3) Neutrophils # (Auto) 6.2 x10^3uL (1.8-7.7) Lymphocytes # (Auto) 2.1 x10^3/uL (1.0-4.8) Monocytes # (Auto) 0.6 x10^3/uL (0.0-1.1) Eosinophils # (Auto) 0.3 x10^3/uL (0.0-0.7) Basophils # (Auto) 0.1 x10^3/uL (0.0-0.2) Sodium Level 139 mmol/L (136-145) Potassium Level 3.3 mmol/L (3.5-5.1) Chloride Level 102 mmol/L (98-107) Carbon Dioxide Level 26 mmol/L (21-32) Anion Gap 11 (6-14) Blood Urea Nitrogen 8 mg/dL (8-26) Creatinine 0.9 mg/dL (0.7-1.3) Estimated GFR (Cockcroft-Gault) 88.3 BUN/Creatinine Ratio 9 (6-20) Glucose Level 154 mg/dL (70-99) Calcium Level 8.7 mg/dL (8.5-10.1) Total Bilirubin 0.6 mg/dL (0.2-1.0) Aspartate Amino Transf (AST/SGOT) 22 U/L (15-37) Alanine Aminotransferase (ALT/SGPT) 40 U/L (16-63) Alkaline Phosphatase 84 U/L (46-116) Total Protein 6.5 g/dL (6.4-8.2) Albumin 3.3 g/dL (3.4-5.0) Albumin/Globulin Ratio 1.0 (1.0-1.7) Lipase 122 U/L (73-393) Allergies: Coded Allergies: Penicillins (Verified Allergy, Intermediate, 07/31/18) Medications: Current Medications Medications (Trade) Dose Ordered Sig/Ramsey Route PRN Reason Start Time Stop Time Status Last Admin Dose Admin Atorvastatin Calcium (Lipitor) 20 mg QHS PO 07/31/18 21:00 07/31/18 20:19 Aspirin (Ecotrin) 81 mg DAILYWBKFT PO 08/01/18 08:00 08/01/18 08:29 Multivitamins (Thera M Plus) 1 tab DAILY PO 07/31/18 13:00 08/01/18 08:29 Diphenhydramine HCl (Benadryl) 25 mg PRN QHS PRN PO INSOMNIA 07/31/18 19:30 07/31/18 20:19 Iohexol (Omnipaque 300 Mg/ml) 75 ml 1X ONCE IV 08/01/18 10:30 08/01/18 10:31 DC 08/01/18 10:30 Imaging: Imaging: [facility] [address] [place] [address] IMAGING REPORT Signed PATIENT: ELGIN BRYANT ACCOUNT: [id number] : 1965 LOCATION: [address] [place] [address] AGE: 53 SEX: M EXAM STATUS: ADM IN ORD. PHYSICIAN: MARIO ESCOBAR MD REASON: ABDOMINAL PAIN S/P PANCREATITIS PROCEDURE: CT ABD PELV W/ IV CONTRST ONLY EXAM: Abdomen and pelvis CT with intravenous contrast. HISTORY: Pain. Pancreatitis. TECHNIQUE: Computed tomographic images of the abdomen and pelvis were obtained following the administration of 100 cc Isovue 370 intravenous contrast. Multiplanar reformatting was performed. *One or more of the following individualized dose reduction techniques were utilized for this examination: 1. Automated exposure control. 2. Adjustment of the mA and/or kV according to patient size. 3. Use of iterative reconstruction technique. COMPARISON: None. FINDINGS: Evaluation of the lower thorax is unremarkable. There is hepatic steatosis. No suspicious hepatic lesion is seen. The gallbladder, pancreas and adrenal glands are unremarkable. There is a splenule anterior to the spleen. There are few splenic granulomas. The spleen is normal in size. The kidneys are unremarkable. The appendix is normal in appearance. No abnormally thickened or dilated loop of bowel is seen. The urinary bladder is unremarkable. There is no lymphadenopathy. There is a tiny fat-containing left periumbilical hernia. There are degenerative changes involving the lumbar spine. 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 IMPRESSION: 1. No acute abdominal or pelvic finding. 2. Hepatic steatosis. Electronically signed by: Ghazal Ga MD (08/01/2018 10:54 AM) [facility] PE: GEN: NAD HEENT: Atraumatic, PERRLA LUNGS: CTAB HEART: RRR, no murmurs ABD: NABS, S/ND/NT, no masses EXTREMITY: No edema SKIN: No rashes, no jaundice NEURO/PSYCH: A & O 3 A/P: A/P: Elgin Bryant is a 53 years old male patient with past medical history of hypertension, hyperlipidemia and tobacco use disorder. He is currently admitted to the hospital after he presented with complaint of chest pain and shortness of breath. GI now consulted with concern of pancreatitis with reported epigastric abdominal pain and elevated lipase ( 535). However, imaging of abdomen and pelvis with CT obtained on 08/01/2018 was notable for unremarkable pancreas with no evidence of inflammations,edema or fluid collections. Patient is currently denying any symptoms with no nausea,vomiting or abdominal pain. Recommendations: - Advance diet as tolerated. - Bowel regimen with Miralax 17 grams daily as needed. - Advise to stop smoking cigarrests. - Screening colonoscopy as out patient. GI available for any Q's. Thank you for involving us in the care of this interesting patient. ANDER BRIDGES MD August 01, 2018 11:58
--- NOTE | 2018-08-01 13:54 | PDOC ---
PROGRESS NOTES Subjective Subjective Patient seen and examined The patient looks and feels better. Objective Objective Vital Signs Date Time Temp Pulse Resp B/P (MAP) Pulse Ox O2 Delivery O2 Flow Rate FiO2 08/01/18 11:41 76 211/113 08/01/18 10:52 98.0 17 99 Room Air 98.0 Intake and Output 08/01/18 07:00 Intake Total 2320 ml Output Total 1150 ml Balance 1170 ml Intake Oral 120 ml IV Total 1000 ml Other 1200 ml Output Urine Total 1150 ml # Voids 1 Physical Exam Abdomen: Normal bowel sounds Heart: Regular rate General: No acute distress Lungs: Clear to auscultation Assessment Assessment Problems Medical Problems: (1) Chest pain Status: Acute (2) Pancreatitis Status: Acute 1. Chest pain: mixed features. Resolved. Echocardiogram shows normal LV systolic function. Troponin is normal 3. We'll control hypertension. Outpatient follow- up with probable stress testing. 2. Malignant HTN. Needs elevated. We will adjust medications. 3. Possible pancreatitis. Patient feeling significantly improved. We'll continue as per the primary service. 4. Tobaccoism Comment Review of Relevant I have reviewed the following items rose (where applicable) has been applied. Labs Laboratory Tests Test 07/31/18 06:09 07/31/18 09:23 07/31/18 10:00 07/31/18 13:33 White Blood Count 16.0 x10^3/uL (4.0-11.0) Red Blood Count 5.63 x10^6/uL (4.30-5.70) Hemoglobin 17.6 g/dL (13.0-17.5) Hematocrit 50.8 % (39.0-53.0) Mean Corpuscular Volume 90 fL (79-100) Mean Corpuscular Hemoglobin 31 pg (25-35) Mean Corpuscular Hemoglobin Concent 35 g/dL (31-37) Red Cell Distribution Width 13.7 % (11.5-14.5) Platelet Count 327 x10^3/uL (140-400) Neutrophils (%) (Auto) 74 % (31-73) Lymphocytes (%) (Auto) 17 % (24-48) Monocytes (%) (Auto) 7 % (0-9) Eosinophils (%) (Auto) 2 % (0-3) Basophils (%) (Auto) 1 % (0-3) Neutrophils # (Auto) 11.7 x10^3uL (1.8-7.7) Lymphocytes # (Auto) 2.7 x10^3/uL (1.0-4.8) Monocytes # (Auto) 1.1 x10^3/uL (0.0-1.1) Eosinophils # (Auto) 0.4 x10^3/uL (0.0-0.7) Basophils # (Auto) 0.1 x10^3/uL (0.0-0.2) D-Dimer (Naima) 0.30 ug/mlFEU (0.00-0.50) Sodium Level 140 mmol/L (136-145) Potassium Level 3.7 mmol/L (3.5-5.1) Chloride Level 100 mmol/L (98-107) Carbon Dioxide Level 27 mmol/L (21-32) Anion Gap 13 (6-14) Blood Urea Nitrogen 15 mg/dL (8-26) Creatinine 1.0 mg/dL (0.7-1.3) Estimated GFR (Cockcroft-Gault) 78.2 BUN/Creatinine Ratio 15 (6-20) Glucose Level 108 mg/dL (70-99) Calcium Level 9.1 mg/dL (8.5-10.1) Magnesium Level 1.9 mg/dL (1.8-2.4) Total Bilirubin 0.7 mg/dL (0.2-1.0) Aspartate Amino Transf (AST/SGOT) 27 U/L (15-37) Alanine Aminotransferase (ALT/SGPT) 42 U/L (16-63) Alkaline Phosphatase 103 U/L (46-116) Troponin I Quantitative < 0.017 ng/mL (0.000-0.055) < 0.017 ng/mL (0.000-0.055) < 0.017 ng/mL (0.000-0.055) WN-Etu-G-Type Natriuretic Peptide 69 pg/mL (0-124) Total Protein 7.5 g/dL (6.4-8.2) Albumin 4.0 g/dL (3.4-5.0) Albumin/Globulin Ratio 1.1 (1.0-1.7) Triglycerides Level 127 mg/dL (0-150) Cholesterol Level 218 mg/dL (0-200) LDL Cholesterol, Calculated 147 mg/dL (0-100) VLDL Cholesterol, Calculated 25 mg/dL (0-40) Non-HDL Cholesterol Calculated 172 mg/dL (0-129) HDL Cholesterol 46 mg/dL (40-60) Cholesterol/HDL Ratio 4.7 Lipase 535 U/L (73-393) Thyroid Stimulating Hormone (TSH) 5.787 uIU/mL (0.358-3.74) Urine Opiates Screen Pos (NEG) Urine Methadone Screen Neg (NEG) Urine Barbiturates Neg (NEG) Urine Phencyclidine Screen Neg (NEG) Urine Amphetamine/Methamphetamine Neg (NEG) Urine Benzodiazepines Screen Neg (NEG) Urine Cocaine Screen Neg (NEG) Urine Cannabinoids Screen Neg (NEG) Urine Ethyl Alcohol Neg (NEG) Test 08/01/18 09:55 White Blood Count 9.3 x10^3/uL (4.0-11.0) Red Blood Count 5.09 x10^6/uL (4.30-5.70) Hemoglobin 15.6 g/dL (13.0-17.5) Hematocrit 46.1 % (39.0-53.0) Mean Corpuscular Volume 91 fL (79-100) Mean Corpuscular Hemoglobin 31 pg (25-35) Mean Corpuscular Hemoglobin Concent 34 g/dL (31-37) Red Cell Distribution Width 13.6 % (11.5-14.5) Platelet Count 300 x10^3/uL (140-400) Neutrophils (%) (Auto) 66 % (31-73) Lymphocytes (%) (Auto) 23 % (24-48) Monocytes (%) (Auto) 7 % (0-9) Eosinophils (%) (Auto) 3 % (0-3) Basophils (%) (Auto) 1 % (0-3) Neutrophils # (Auto) 6.2 x10^3uL (1.8-7.7) Lymphocytes # (Auto) 2.1 x10^3/uL (1.0-4.8) Monocytes # (Auto) 0.6 x10^3/uL (0.0-1.1) Eosinophils # (Auto) 0.3 x10^3/uL (0.0-0.7) Basophils # (Auto) 0.1 x10^3/uL (0.0-0.2) Sodium Level 139 mmol/L (136-145) Potassium Level 3.3 mmol/L (3.5-5.1) Chloride Level 102 mmol/L (98-107) Carbon Dioxide Level 26 mmol/L (21-32) Anion Gap 11 (6-14) Blood Urea Nitrogen 8 mg/dL (8-26) Creatinine 0.9 mg/dL (0.7-1.3) Estimated GFR (Cockcroft-Gault) 88.3 BUN/Creatinine Ratio 9 (6-20) Glucose Level 154 mg/dL (70-99) Calcium Level 8.7 mg/dL (8.5-10.1) Total Bilirubin 0.6 mg/dL (0.2-1.0) Aspartate Amino Transf (AST/SGOT) 22 U/L (15-37) Alanine Aminotransferase (ALT/SGPT) 40 U/L (16-63) Alkaline Phosphatase 84 U/L (46-116) Total Protein 6.5 g/dL (6.4-8.2) Albumin 3.3 g/dL (3.4-5.0) Albumin/Globulin Ratio 1.0 (1.0-1.7) Lipase 122 U/L (73-393) Laboratory Tests Test 08/01/18 09:55 White Blood Count 9.3 x10^3/uL (4.0-11.0) Red Blood Count 5.09 x10^6/uL (4.30-5.70) Hemoglobin 15.6 g/dL (13.0-17.5) Hematocrit 46.1 % (39.0-53.0) Mean Corpuscular Volume 91 fL (79-100) Mean Corpuscular Hemoglobin 31 pg (25-35) Mean Corpuscular Hemoglobin Concent 34 g/dL (31-37) Red Cell Distribution Width 13.6 % (11.5-14.5) Platelet Count 300 x10^3/uL (140-400) Neutrophils (%) (Auto) 66 % (31-73) Lymphocytes (%) (Auto) 23 % (24-48) Monocytes (%) (Auto) 7 % (0-9) Eosinophils (%) (Auto) 3 % (0-3) Basophils (%) (Auto) 1 % (0-3) Neutrophils # (Auto) 6.2 x10^3uL (1.8-7.7) Lymphocytes # (Auto) 2.1 x10^3/uL (1.0-4.8) Monocytes # (Auto) 0.6 x10^3/uL (0.0-1.1) Eosinophils # (Auto) 0.3 x10^3/uL (0.0-0.7) Basophils # (Auto) 0.1 x10^3/uL (0.0-0.2) Sodium Level 139 mmol/L (136-145) Potassium Level 3.3 mmol/L (3.5-5.1) Chloride Level 102 mmol/L (98-107) Carbon Dioxide Level 26 mmol/L (21-32) Anion Gap 11 (6-14) Blood Urea Nitrogen 8 mg/dL (8-26) Creatinine 0.9 mg/dL (0.7-1.3) Estimated GFR (Cockcroft-Gault) 88.3 BUN/Creatinine Ratio 9 (6-20) Glucose Level 154 mg/dL (70-99) Calcium Level 8.7 mg/dL (8.5-10.1) Total Bilirubin 0.6 mg/dL (0.2-1.0) Aspartate Amino Transf (AST/SGOT) 22 U/L (15-37) Alanine Aminotransferase (ALT/SGPT) 40 U/L (16-63) Alkaline Phosphatase 84 U/L (46-116) Total Protein 6.5 g/dL (6.4-8.2) Albumin 3.3 g/dL (3.4-5.0) Albumin/Globulin Ratio 1.0 (1.0-1.7) Lipase 122 U/L (73-393) Medications Current Medications Aspirin (Children'S Aspirin) 324 mg 1X ONCE PO Last administered on 07/31/18at 06:48; Start 07/31/18 at 06:45; Stop 07/31/18 at 06:46; Status DC Sodium Chloride 1,000 ml @ 100 mls/hr Q10H IV Last administered on 07/31/18at 06:48; Start 07/31/18 at 06:45; Stop 07/31/18 at 12:40; Status DC Ondansetron HCl (Zofran) 4 mg PRN Q8HRS PRN IV NAUSEA/VOMITING Last administered on 5/3/19at 08:16; Start 07/31/18 at 07:45; Stop 08/01/18 at 07:44; Status DC Morphine Sulfate (Morphine Sulfate) 2 mg PRN Q2HR PRN IV PAIN Last administered on 07/31/18 08:17; Start 07/31/18 at 07:45; Stop 08/01/18 at 07:44; Status DC Sodium Chloride 1,000 ml @ 125 mls/hr Q8H IV Last administered on 07/31/18 21:57; Start 07/31/18 at 08:00; Stop 08/01/18 at 07:59; Status DC Labetalol HCl (Normodyne Iv Push) 10 mg 1X STAT IVP Last administered on 07/31/18 08:40; Start 07/31/18 at 08:32; Stop 07/31/18 at 08:34; Status DC Atorvastatin Calcium (Lipitor) 20 mg QHS PO Last administered on 07/31/18 20:19; Start 07/31/18 at 21:00 Aspirin (Ecotrin) 81 mg DAILYWBKFT PO Last administered on 08/01/18 08:29; Start 08/01/18 at 08:00 Losartan Potassium (Cozaar) 100 mg DAILY PO Last administered on 08/01/18 08:30; Start 07/31/18 at 11:30 Labetalol HCl (Normodyne Iv Push) 20 mg PRN Q2HR PRN IVP HYPERTENSION, SEE COMMENTS Last administered on 08/01/18 11:41; Start 07/31/18 at 11:00 Chlorthalidone (Thalitone) 25 mg DAILY PO Last administered on 08/01/18 08:29; Start 07/31/18 at 11:30 Amlodipine Besylate (Norvasc) 5 mg 1X ONCE PO Last administered on 07/31/18 11:49; Start 07/31/18 at 11:30; Stop 07/31/18 at 11:31; Status DC Pantoprazole Sodium (Protonix) 40 mg PRN DAILY PRN PO HEARTBURN / GAS; Start 08/01/18 at 07:30 Non-Formulary Medication (Glucosam/Chond/ Hyalu/Cf Borate (Move Free Joint Health Tablet)) 1 each DAILY PO ; Start 08/01/18 at 09:00; Status UNV Multivitamins (Thera M Plus) 1 tab DAILY PO Last administered on 08/01/18at 08:29; Start 07/31/18 at 13:00 Losartan Potassium (Cozaar) 100 mg DAILY PO ; Start 07/31/18 at 13:00; Status Cancel Diphenhydramine HCl (Benadryl) 25 mg PRN QHS PRN PO INSOMNIA Last administered on 07/31/18at 20:19; Start 07/31/18 at 19:30 Iohexol (Omnipaque 300 Mg/ml) 75 ml 1X ONCE IV Last administered on 08/01/18at 10:30; Start 08/01/18 at 10:30; Stop 08/01/18 at 10:31; Status DC Info (CONTRAST GIVEN -- Rx MONITORING) 1 each PRN DAILY PRN MC SEE COMMENTS; Start 08/01/18 at 10:30; Stop 08/03/18 at 10:29 Active Scripts Active Reported Prilosec Otc (Omeprazole Magnesium) 20 Mg Tablet.dr 1 Tab PO PRN DAILY PRN Move Free Joint Health Tablet (Glucosam/Chond/Hyalu/Cf Borate) 1 Each Tablet 1 Each PO DAILY Aspir-Low (Aspirin) 81 Mg Tablet. 1 Tab PO DAILY Multivitamins (Multivitamin) 1 Each Tablet 1 Tab PO DAILY Losartan Potassium 100 Mg Tablet 100 Mg PO DAILY Vitals/I & O Vital Sign - Last 24 Hours 07/31/18 07/31/18 07/31/18 07/31/18 15:00 18:33 20:00 21:54 Temp 97.7 97.7 Pulse 83 91 86 Resp 18 B/P (MAP) 177/113 (134) 170/99 (122) 184/97 Pulse Ox 97 O2 Delivery Room Air Room Air Room Air 07/31/18 08/01/18 08/01/18 08/01/18 23:48 03:30 07:00 08:00 Temp 97.9 98.0 98.3 97.9 98.0 98.3 Pulse 84 98 91 Resp 17 17 17 B/P (MAP) 164/101 (122) 144/90 (108) 167/103 (124) Pulse Ox 96 95 98 O2 Delivery Room Air Room Air Room Air Room Air 08/01/18 08/01/18 08/01/18 08:30 10:52 11:41 Temp 98.0 98.0 Pulse 91 82 76 Resp 17 B/P (MAP) 167/103 196/107 (136) 211/113 Pulse Ox 99 O2 Delivery Room Air Intake and Output 07/31/18 07/31/18 08/01/18 15:00 23:00 07:00 Intake Total 1000 ml 1320 ml Output Total 500 ml 650 ml Balance 1000 ml -500 ml 670 ml MILY ARREOLA MD August 01, 2018 13:54
[2018-08-01] MEDS ORDERED: hydrALAZINE 20 MG/ML VIAL. ONE (14:04)
[2018-08-01] MEDS: amLODIPine BESYLATE 5 MG TABLET PO SCH (14:07)
[2018-08-01] MEDS ORDERED: hydrALAZINE 20 MG/ML VIAL. IVP PRN (14:15)
[2018-08-01] MEDS ORDERED: POTASSIUM CHLORIDE 20 MEQ TABLET.ER. PO ONE (15:00)
[2018-08-01] MEDS ORDERED: amLODIPine BESYLATE 5 MG TABLET PO ONE ×4 (16:45→19:00)
[2018-08-01] MEDS: ATORVASTATIN CALCIUM 20 MG TABLET PO SCH (20:51)
[2018-08-01] MEDS ORDERED: LORazepam 1 MG TABLET PO SCH (21:00)
[2018-08-02 03:05] VITALS: BP 140/84
[2018-08-02 05:50] LABS: CALCIUM 8.8 mg/dL (8.5-10.1); CREATININE 0.9 mg/dL (0.7-1.3); GFR 88.3; POTASSIUM 3.5 mmol/L (3.5-5.1)
[2018-08-02 07:00] VITALS: BP 161/89
[2018-08-02] MEDS: CHLORTHALIDONE 25 MG TABLET. PO SCH (08:36)
[2018-08-02] MEDS: ASPIRIN ENTERIC COATED 81 MG TABLET.DR. PO SCH (08:36)
[2018-08-02] MEDS: amLODIPine BESYLATE 5 MG TABLET PO SCH (08:36)
[2018-08-02] MEDS: LOSARTAN POTASSIUM 50 MG TABLET. PO SCH (08:36)
[2018-08-02] MEDS: MULTIVITAMIN with MINERAL TABLET. PO SCH (08:36)
[2018-08-02] MEDS ORDERED: amLODIPine BESYLATE 10 MG TABLET PO SCH (10:15)
--- NOTE | 2018-08-02 10:58 | PDOC ---
PROGRESS NOTES History of Present Illness History of Present Illness VTE Prophylaxis Ordered VTE Prophylaxis Devices: No VTE Pharmacological Prophylaxi: Yes Assessment/Plan Assessment/Plan A/P: Shortness of breath - negative d dimer, CXR, EKG. Pancreatitis could cause this 2/2 splinting. Chest pain - likely non-cardiac, however with age he is at risk, will trend troponins, telemetry. Cardiology to see, echo Abdominal pain - with nausea could be cardiac, but with lipase elevated this is pancreatitis, will give aggressive IVF, supportive care, NPO Leukocytosis - with tachycardia meets SIRS criteria, unclear if he has an infectious source Malignant HTN - add thiazide HLD - needs to consider statin in the future, lifestyle modification Tobacco abuse - counseled on cessation Malignant hypertension. better last pm now 190/113- 185/101 FEN - NPO --> Cardiac diet if he has appetite PPX - Lovenox FULL CODE Dispo - Inpatient for acute pancreatitis with SIRS, likely 2 midnights GI CONSULT 35 min pt exam, d/c planning chart review, > 50% of time spent with exam, chart review, pt care coordination Vitals Vitals Vital Signs Date Time Temp Pulse Resp B/P (MAP) Pulse Ox O2 Delivery O2 Flow Rate FiO2 08/02/18 08:36 92 08/02/18 07:00 97.8 14 161/89 (113) 95 Room Air 97.8 Physical Exam General: Alert, Oriented X3, Cooperative, No acute distress Heart: Regular rate, Normal S1, Normal S2 Lungs: Clear Abdomen: Normal bowel sounds Extremities: No clubbing, No cyanosis, No edema, Normal pulses, No tenderness/swelling Skin: No rashes, No breakdown, No significant lesion Labs LABS Laboratory Tests Test 08/02/18 05:05 Sodium Level 137 mmol/L (136-145) Potassium Level 3.5 mmol/L (3.5-5.1) Chloride Level 101 mmol/L (98-107) Carbon Dioxide Level 26 mmol/L (21-32) Anion Gap 10 (6-14) Blood Urea Nitrogen 13 mg/dL (8-26) Creatinine 0.9 mg/dL (0.7-1.3) Estimated GFR (Cockcroft-Gault) 88.3 Glucose Level 124 mg/dL (70-99) Calcium Level 8.8 mg/dL (8.5-10.1) Assessment and Plan Assessmemt and Plan Problems Medical Problems: (1) Chest pain Status: Acute (2) Pancreatitis Status: Acute Comment Review of Relevant I have reviewed the following items rose (where applicable) has been applied. Labs Laboratory Tests Test 07/31/18 13:33 08/01/18 09:55 08/02/18 05:05 Troponin I Quantitative < 0.017 ng/mL (0.000-0.055) White Blood Count 9.3 x10^3/uL (4.0-11.0) Red Blood Count 5.09 x10^6/uL (4.30-5.70) Hemoglobin 15.6 g/dL (13.0-17.5) Hematocrit 46.1 % (39.0-53.0) Mean Corpuscular Volume 91 fL (79-100) Mean Corpuscular Hemoglobin 31 pg (25-35) Mean Corpuscular Hemoglobin Concent 34 g/dL (31-37) Red Cell Distribution Width 13.6 % (11.5-14.5) Platelet Count 300 x10^3/uL (140-400) Neutrophils (%) (Auto) 66 % (31-73) Lymphocytes (%) (Auto) 23 % (24-48) Monocytes (%) (Auto) 7 % (0-9) Eosinophils (%) (Auto) 3 % (0-3) Basophils (%) (Auto) 1 % (0-3) Neutrophils # (Auto) 6.2 x10^3uL (1.8-7.7) Lymphocytes # (Auto) 2.1 x10^3/uL (1.0-4.8) Monocytes # (Auto) 0.6 x10^3/uL (0.0-1.1) Eosinophils # (Auto) 0.3 x10^3/uL (0.0-0.7) Basophils # (Auto) 0.1 x10^3/uL (0.0-0.2) Sodium Level 139 mmol/L (136-145) 137 mmol/L (136-145) Potassium Level 3.3 mmol/L (3.5-5.1) 3.5 mmol/L (3.5-5.1) Chloride Level 102 mmol/L (98-107) 101 mmol/L (98-107) Carbon Dioxide Level 26 mmol/L (21-32) 26 mmol/L (21-32) Anion Gap 11 (6-14) 10 (6-14) Blood Urea Nitrogen 8 mg/dL (8-26) 13 mg/dL (8-26) Creatinine 0.9 mg/dL (0.7-1.3) 0.9 mg/dL (0.7-1.3) Estimated GFR (Cockcroft-Gault) 88.3 88.3 BUN/Creatinine Ratio 9 (6-20) Glucose Level 154 mg/dL (70-99) 124 mg/dL (70-99) Calcium Level 8.7 mg/dL (8.5-10.1) 8.8 mg/dL (8.5-10.1) Total Bilirubin 0.6 mg/dL (0.2-1.0) Aspartate Amino Transf (AST/SGOT) 22 U/L (15-37) Alanine Aminotransferase (ALT/SGPT) 40 U/L (16-63) Alkaline Phosphatase 84 U/L (46-116) Total Protein 6.5 g/dL (6.4-8.2) Albumin 3.3 g/dL (3.4-5.0) Albumin/Globulin Ratio 1.0 (1.0-1.7) Lipase 122 U/L (73-393) Free Thyroxine 1.00 ng/dL (0.76-1.46) Free Triiodothyronine (T3) pg/mL 2.67 pg/mL (2.18-3.98) Laboratory Tests Test 08/02/18 05:05 Sodium Level 137 mmol/L (136-145) Potassium Level 3.5 mmol/L (3.5-5.1) Chloride Level 101 mmol/L (98-107) Carbon Dioxide Level 26 mmol/L (21-32) Anion Gap 10 (6-14) Blood Urea Nitrogen 13 mg/dL (8-26) Creatinine 0.9 mg/dL (0.7-1.3) Estimated GFR (Cockcroft-Gault) 88.3 Glucose Level 124 mg/dL (70-99) Calcium Level 8.8 mg/dL (8.5-10.1) Medications Current Medications Aspirin (Children'S Aspirin) 324 mg 1X ONCE PO Last administered on 07/31/18at 06:48; Start 07/31/18 at 06:45; Stop 07/31/18 at 06:46; Status DC Sodium Chloride 1,000 ml @ 100 mls/hr Q10H IV Last administered on 07/31/18 06:48; Start 07/31/18 at 06:45; Stop 07/31/18 at 12:40; Status DC Ondansetron HCl (Zofran) 4 mg PRN Q8HRS PRN IV NAUSEA/VOMITING Last administered on 07/31/18 08:16; Start 07/31/18 at 07:45; Stop 08/01/18 at 07:44; Status DC Morphine Sulfate (Morphine Sulfate) 2 mg PRN Q2HR PRN IV PAIN Last administered on 07/31/18 08:17; Start 07/31/18 at 07:45; Stop 08/01/18 at 07:44; Status DC Sodium Chloride 1,000 ml @ 125 mls/hr Q8H IV Last administered on 07/31/18 21:57; Start 07/31/18 at 08:00; Stop 08/01/18 at 07:59; Status DC Labetalol HCl (Normodyne Iv Push) 10 mg 1X STAT IVP Last administered on 07/31/18 08:40; Start 07/31/18 at 08:32; Stop 07/31/18 at 08:34; Status DC Atorvastatin Calcium (Lipitor) 20 mg QHS PO Last administered on 08/01/18 20:51; Start 07/31/18 at 21:00 Aspirin (Ecotrin) 81 mg DAILYWBKFT PO Last administered on 08/02/18 08:36; Start 08/01/18 at 08:00 Losartan Potassium (Cozaar) 100 mg DAILY PO Last administered on 08/02/18 08:36; Start 07/31/18 at 11:30 Labetalol HCl (Normodyne Iv Push) 20 mg PRN Q2HR PRN IVP HYPERTENSION, SEE COMMENTS Last administered on 08/01/18 11:41; Start 07/31/18 at 11:00 Chlorthalidone (Thalitone) 25 mg DAILY PO Last administered on 08/02/18 08:36; Start 07/31/18 at 11:30 Amlodipine Besylate (Norvasc) 5 mg 1X ONCE PO Last administered on 5/3/19at 11:49; Start 07/31/18 at 11:30; Stop 07/31/18 at 11:31; Status DC Pantoprazole Sodium (Protonix) 40 mg PRN DAILY PRN PO HEARTBURN / GAS; Start 08/01/18 at 07:30 Non-Formulary Medication (Glucosam/Chond/ Hyalu/Cf Borate (Move Free Joint Health Tablet)) 1 each DAILY PO ; Start 08/01/18 at 09:00; Status UNV Multivitamins (Thera M Plus) 1 tab DAILY PO Last administered on 08/02/18at 08:36; Start 07/31/18 at 13:00 Losartan Potassium (Cozaar) 100 mg DAILY PO ; Start 07/31/18 at 13:00; Status Cancel Diphenhydramine HCl (Benadryl) 25 mg PRN QHS PRN PO INSOMNIA Last administered on 07/31/18at 20:19; Start 07/31/18 at 19:30 Iohexol (Omnipaque 300 Mg/ml) 75 ml 1X ONCE IV Last administered on 08/01/18at 10:30; Start 08/01/18 at 10:30; Stop 08/01/18 at 10:31; Status DC Info (CONTRAST GIVEN -- Rx MONITORING) 1 each PRN DAILY PRN MC SEE COMMENTS; Start 08/01/18 at 10:30; Stop 08/03/18 at 10:29 Amlodipine Besylate (Norvasc) 2.5 mg DAILY PO Last administered on 08/02/18at 08:36; Start 08/01/18 at 14:00; Stop 08/02/18 at 10:13; Status DC Hydralazine HCl (Apresoline Inj) 10 mg PRN Q4HRS PRN IVP ELEVATED BP, SEE COMMENTS Last administered on 08/01/18at 14:11; Start 08/01/18 at 14:15 Hydralazine HCl (Apresoline Inj) 20 mg STK-MED ONCE .ROUTE ; Start 08/01/18 at 14:04; Stop 08/01/18 at 14:05; Status DC Potassium Chloride (Klor-Con) 40 meq 1X ONCE PO Last administered on 08/01/18at 17:18; Start 08/01/18 at 15:00; Stop 08/01/18 at 15:01; Status DC Amlodipine Besylate (Norvasc) 7.5 mg 1X ONCE PO ; Start 08/01/18 at 16:45; Stop 08/01/18 at 16:46; Status Cancel Amlodipine Besylate (Norvasc) 5 mg 1X ONCE PO ; Start 08/01/18 at 16:45; Stop 08/01/18 at 16:46; Status UNV Amlodipine Besylate (Norvasc) 5 mg 1X ONCE PO Last administered on 08/01/18at 19:14; Start 08/01/18 at 19:00; Stop 08/01/18 at 19:01; Status DC Amlodipine Besylate (Norvasc) 2.5 mg 1X ONCE PO Last administered on 08/01/18at 17:16; Start 08/01/18 at 17:00; Stop 08/01/18 at 17:01; Status DC Lorazepam (Ativan) 1 mg QHS PO Last administered on 08/01/18at 20:51; Start 08/01/18 at 21:00 Amlodipine Besylate (Norvasc) 10 mg DAILY PO ; Start 08/02/18 at 10:15 Active Scripts Active Reported Prilosec Otc (Omeprazole Magnesium) 20 Mg Tablet. 1 Tab PO PRN DAILY PRN Move Free BioTheryX Tablet (Glucosam/Chond/Hyalu/Cf Borate) 1 Each Tablet 1 Each PO DAILY Aspir-Low (Aspirin) 81 Mg Tablet. 1 Tab PO DAILY Multivitamins (Multivitamin) 1 Each Tablet 1 Tab PO DAILY Losartan Potassium 100 Mg Tablet 100 Mg PO DAILY Vitals/I & O Vital Sign - Last 24 Hours 08/01/18 08/01/18 08/01/18 08/01/18 11:41 14:07 14:11 14:45 Temp 98.1 98.1 Pulse 76 82 81 84 Resp 17 B/P (MAP) 211/113 196/111 196/111 185/90 (121) Pulse Ox 100 O2 Delivery Room Air 08/01/18 08/01/18 08/01/18 08/01/18 17:16 19:05 19:14 20:00 Temp 98.3 98.3 Pulse 84 82 87 Resp 18 B/P (MAP) 167/90 190/88 (122) 190/88 Pulse Ox 98 O2 Delivery Room Air Room Air 08/01/18 08/01/18 08/02/18 08/02/18 20:49 23:00 03:05 07:00 Temp 98.7 98.1 97.8 98.7 98.1 97.8 Pulse 85 77 81 Resp 21 18 14 B/P (MAP) 171/94 (119) 135/80 (98) 140/84 (102) 161/89 (113) Pulse Ox 97 91 95 O2 Delivery Room Air Room Air Room Air 08/02/18 08/02/18 08:36 08:36 Pulse 92 92 Intake and Output 08/01/18 08/01/18 08/02/18 15:00 23:00 07:00 Intake Total 180 ml 160 ml Output Total 900 ml Balance -720 ml 160 ml MARIO ESCOBAR MD August 02, 2018 10:58
[2018-08-02 11:00] VITALS: BP 185/101
--- NOTE | 2018-08-02 11:15 | PDOC3 ---
Discharge Summary Date of Admission: July 31, 2018 Date of Discharge: August 02, 2018 Follow-Up: 3-5 days Admitting Diagnosis comment: VTE Prophylaxis Ordered VTE Prophylaxis Devices: No VTE Pharmacological Prophylaxi: Yes discharge dx Assessment/Plan A/P: Shortness of breath - negative d dimer, CXR, EKG. Pancreatitis could cause this 2/2 splinting. Chest pain - likely non-cardiac, however with age he is at risk, will trend troponins, telemetry. Cardiology to see, echo Abdominal pain - with nausea could be cardiac, but with lipase high Leukocytosis - with tachycardia meets SIRS criteria, unclear if he has an infectious source Malignant HTN - add thiazide, norvasc 10mg po daily HLD - needs to consider statin in the future, lifestyle modification Tobacco abuse - counseled on cessation Malignant hypertension. better last pm now 190/113- 185/101 FEN - NPO --> Cardiac diet PPX - Lovenox FULL CODE Dispo - Inpatient for acute pancreatitis with SIRS, likely 2 midnights GI CONSULT ok with d/c 35 min pt exam, d/c planning chart review, > 50% of time spent with exam, chart review, pt care coordination Vitals Vitals Vital Signs Date Time Temp Pulse Resp B/P (MAP) Pulse Ox O2 Delivery O2 Flow Rate FiO2 08/02/18 08:36 92 08/02/18 07:00 97.8 14 161/89 (113) 95 Room Air 97.8 Physical Exam General: Alert, Oriented X3, Cooperative, No acute distress Heart: Regular rate, Normal S1, Normal S2 Lungs: Clear Abdomen: Normal bowel sounds Extremities: No clubbing, No cyanosis, No edema, Normal pulses, No ten derness/swelling Skin: No rashes, No breakdown, No significant lesion FINAL DIAGNOSIS Problems Medical Problems: (1) Chest pain Status: Acute (2) Pancreatitis Status: Acute Brief Hospital Course Mr. Casper is a 53 old [sex] who presented with [ ] Discharge Medications Current Medications Aspirin (Children'S Aspirin) 324 mg 1X ONCE PO Last administered on 07/31/18at 06:48; Start 07/31/18 at 06:45; Stop 07/31/18 at 06:46; Status DC Sodium Chloride 1,000 ml @ 100 mls/hr Q10H IV Last administered on 07/31/18 06:48; Start 07/31/18 at 06:45; Stop 07/31/18 at 12:40; Status DC Ondansetron HCl (Zofran) 4 mg PRN Q8HRS PRN IV NAUSEA/VOMITING Last administered on 07/31/18 08:16; Start 07/31/18 at 07:45; Stop 08/01/18 at 07:44; Status DC Morphine Sulfate (Morphine Sulfate) 2 mg PRN Q2HR PRN IV PAIN Last administered on 07/31/18 08:17; Start 07/31/18 at 07:45; Stop 08/01/18 at 07:44; Status DC Sodium Chloride 1,000 ml @ 125 mls/hr Q8H IV Last administered on 07/31/18 21:57; Start 07/31/18 at 08:00; Stop 08/01/18 at 07:59; Status DC Labetalol HCl (Normodyne Iv Push) 10 mg 1X STAT IVP Last administered on 07/31/18 08:40; Start 07/31/18 at 08:32; Stop 07/31/18 at 08:34; Status DC Atorvastatin Calcium (Lipitor) 20 mg QHS PO Last administered on 08/01/18 20:51; Start 07/31/18 at 21:00 Aspirin (Ecotrin) 81 mg DAILYWBKFT PO Last administered on 08/02/18 08:36; Start 08/01/18 at 08:00 Losartan Potassium (Cozaar) 100 mg DAILY PO Last administered on 08/02/18 08:36; Start 07/31/18 at 11:30 Labetalol HCl (Normodyne Iv Push) 20 mg PRN Q2HR PRN IVP HYPERTENSION, SEE CO MMENTS Last administered on 08/01/18 11:41; Start 07/31/18 at 11:00 Chlorthalidone (Thalitone) 25 mg DAILY PO Last administered on 08/02/18 08:36; Start 07/31/18 at 11:30 Amlodipine Besylate (Norvasc) 5 mg 1X ONCE PO Last administered on 07/31/18 11:49; Start 07/31/18 at 11:30; Stop 07/31/18 at 11:31; Status DC Pantoprazole Sodium (Protonix) 40 mg PRN DAILY PRN PO HEARTBURN / GAS; Start 08/01/18 at 07:30 Non-Formulary Medication (Glucosam/Chond/ Hyalu/Cf Borate (Move Free [employer] Tablet)) 1 each DAILY PO ; Start 08/01/18 at 09:00; Status UNV Multivitamins (Thera M Plus) 1 tab DAILY PO Last administered on 08/02/18at 08:36; Start 07/31/18 at 13:00 Losartan Potassium (Cozaar) 100 mg DAILY PO ; Start 07/31/18 at 13:00; Status Cancel Diphenhydramine HCl (Benadryl) 25 mg PRN QHS PRN PO INSOMNIA Last administered on 07/31/18at 20:19; Start 07/31/18 at 19:30 Iohexol (Omnipaque 300 Mg/ml) 75 ml 1X ONCE IV Last administered on 08/01/18at 10:30; Start 08/01/18 at 10:30; Stop 08/01/18 at 10:31; Status DC Info (CONTRAST GIVEN -- Rx MONITORING) 1 each PRN DAILY PRN MC SEE COMMENTS; Start 08/01/18 at 10:30; Stop 08/03/18 at 10:29 Amlodipine Besylate (Norvasc) 2.5 mg DAILY PO Last administered on 08/02/18at 08:36; Start 08/01/18 at 14:00; Stop 08/02/18 at 10:13; Status DC Hydralazine HCl (Apresoline Inj) 10 mg PRN Q4HRS PRN IVP ELEVATED BP, SEE COMMENTS Last administered on 08/01/18at 14:11; Start 08/01/18 at 14:15 Hydralazine HCl (Apresoline Inj) 20 mg STK-MED ONCE .ROUTE ; Start 08/01/18 at 14:04; Stop 08/01/18 at 14:05; Status DC Potassium Chloride (Klor-Con) 40 meq 1X ONCE PO Last administered on 08/01/18at 17:18; Start 08/01/18 at 15:00; Stop 08/01/18 at 15:01; Status DC Amlodipine Besylate (Norvasc) 7.5 mg 1X ONCE PO ; Start 08/01/18 at 16:45; Stop 08/01/18 at 16:46; Status Cancel Amlodipine Besylate (Norvasc) 5 mg 1X ONCE PO ; Start 08/01/18 at 16:45; Stop 08/01/18 at 16:46; Status UNV Amlodipine Besylate (Norvasc) 5 mg 1X ONCE PO Last administered on 08/01/18at 19:14; Start 08/01/18 at 19:00; Stop 08/01/18 at 19:01; Status DC Amlodipine Besylate (Norvasc) 2.5 mg 1X ONCE PO Last administered on 08/01/18at 17:16; Start 08/01/18 at 17:00; Stop 08/01/18 at 17:01; Status DC Lorazepam (Ativan) 1 mg QHS PO Last administered on 08/01/18at 20:51; Start 08/01/18 at 21:00 Amlodipine Besylate (Norvasc) 10 mg DAILY PO ; Start 08/02/18 at 10:15 Active Scripts Active Reported Prilosec Otc (Omeprazole Magnesium) 20 Mg Tablet.dr 1 Tab PO PRN DAILY PRN Move Free Grupo A Tablet (Glucosam/Chond/Hyalu/Cf Borate) 1 Each Tablet 1 Each PO DAILY Aspir-Low (Aspirin) 81 Mg Tablet.dr 1 Tab PO DAILY Multivitamins (Multivitamin) 1 Each Tablet 1 Tab PO DAILY Losartan Potassium 100 Mg Tablet 100 Mg PO DAILY Vital Signs Vital Signs Date Time Temp Pulse Resp B/P (MAP) Pulse Ox O2 Delivery O2 Flow Rate FiO2 08/02/18 08:36 92 08/02/18 07:00 97.8 14 161/89 (113) 95 Room Air 97.8 Labs Laboratory Tests Test 07/31/18 13:33 08/01/18 09:55 08/02/18 05:05 Troponin I Quantitative < 0.017 ng/mL (0.000-0.055) White Blood Count 9.3 x10^3/uL (4.0-11.0) Red Blood Count 5.09 x10^6/uL (4.30-5.70) Hemoglobin 15.6 g/dL (13.0-17.5) Hematocrit 46.1 % (39.0-53.0) Mean Corpuscular Volume 91 fL (79-100) Mean Corpuscular Hemoglobin 31 pg (25-35) Mean Corpuscular Hemoglobin Concent 34 g/dL (31-37) Red Cell Distribution Width 13.6 % (11.5-14.5) Platelet Count 300 x10^3/uL (140-400) Neutrophils (%) (Auto) 66 % (31-73) Lymphocytes (%) (Auto) 23 % (24-48) Monocytes (%) (Auto) 7 % (0-9) Eosinophils (%) (Auto) 3 % (0-3) Basophils (%) (Auto) 1 % (0-3) Neutrophils # (Auto) 6.2 x10^3uL (1.8-7.7) Lymphocytes # (Auto) 2.1 x10^3/uL (1.0-4.8) Monocytes # (Auto) 0.6 x10^3/uL (0.0-1.1) Eosinophils # (Auto) 0.3 x10^3/uL (0.0-0.7) Basophils # (Auto) 0.1 x10^3/uL (0.0-0.2) Sodium Level 139 mmol/L (136-145) 137 mmol/L (136-145) Potassium Level 3.3 mmol/L (3.5-5.1) 3.5 mmol/L (3.5-5.1) Chloride Level 102 mmol/L (98-107) 101 mmol/L (98-107) Carbon Dioxide Level 26 mmol/L (21-32) 26 mmol/L (21-32) Anion Gap 11 (6-14) 10 (6-14) Blood Urea Nitrogen 8 mg/dL (8-26) 13 mg/dL (8-26) Creatinine 0.9 mg/dL (0.7-1.3) 0.9 mg/dL (0.7-1.3) Estimated GFR (Cockcroft-Gault) 88.3 88.3 BUN/Creatinine Ratio 9 (6-20) Glucose Level 154 mg/dL (70-99) 124 mg/dL (70-99) Calcium Level 8.7 mg/dL (8.5-10.1) 8.8 mg/dL (8.5-10.1) Total Bilirubin 0.6 mg/dL (0.2-1.0) Aspartate Amino Transf (AST/SGOT) 22 U/L (15-37) Alanine Aminotransferase (ALT/SGPT) 40 U/L (16-63) Alkaline Phosphatase 84 U/L (46-116) Total Protein 6.5 g/dL (6.4-8.2) Albumin 3.3 g/dL (3.4-5.0) Albumin/Globulin Ratio 1.0 (1.0-1.7) Lipase 122 U/L (73-393) Free Thyroxine 1.00 ng/dL (0.76-1.46) Free Triiodothyronine (T3) pg/mL 2.67 pg/mL (2.18-3.98) Laboratory Tests Test 08/02/18 05:05 Sodium Level 137 mmol/L (136-145) Potassium Level 3.5 mmol/L (3.5-5.1) Chloride Level 101 mmol/L (98-107) Carbon Dioxide Level 26 mmol/L (21-32) Anion Gap 10 (6-14) Blood Urea Nitrogen 13 mg/dL (8-26) Creatinine 0.9 mg/dL (0.7-1.3) Estimated GFR (Cockcroft-Gault) 88.3 Glucose Level 124 mg/dL (70-99) Calcium Level 8.8 mg/dL (8.5-10.1) Allergies Allergies Coded Allergies Type Severity Reaction Last Updated Verified Penicillins Allergy Intermediate 07/31/18 Yes Disposition/Orders: D/C to Home Patient Instructions d/c planning 35 min MARIO ESCOBAR MD August 02, 2018 11:15
[2018-08-02] MEDS ORDERED: ATOR20TA58 PO (11:17)
[2018-08-02] MEDS ORDERED: CHLO25TA10 PO (11:17)
[2018-08-02] MEDS ORDERED: AMLO10TA8 PO (11:17)
--- NOTE | 2018-08-02 11:19 | DISCH ---
DISCHARGE INSTRUCTIONS Condition on Discharge Condition on Discharge: Stable Activity After Discharge Activity Instructions for Disc: Activity as tolerated Lifting Instructions after Dis: No heavy lifting, No pulling or pushing Exercise Instruction after Dis: Walk 10 min, 3 x per day Driving Instructions after Dis: Do not drive today Diet after Discharge Diet after Discharge: Cardiac Checks after Discharge Checks after discharge: Check blood press - daily Contacting the DR. after DC Call your doctor for: If your condition worsens MARIO ESCOBAR MD August 02, 2018 11:19
[2018-08-02 13:00] VITALS: BP 180/105
[2018-08-02 15:00] VITALS: BP 180/95
[2018-08-02] MEDS: LABETALOL 20 MG/4 ML DISP.SYRIN. IVP PRN (15:08)
[2018-08-02 15:30] VITALS: BP 168/100
--- NOTE | 2018-08-02 15:43 | NUR ---
Blood pressure: Blood pressure elevated. reported to Dr. Mario via telephone and verbalized its still ok to discharge. Dr. Tanner stated it was ok for patient to discharge with currently blood pressure. Will continue to monitor. Both physicians aware of blood pressure 180's/100 with PRN now 168/100
--- NOTE | 2018-08-02 17:07 | NUR ---
Discharge: Teaching verbal and written. Reviewed medications, follow-up, pancreatitis, CP, hypertension, ect. Patient verbalized understanding. 3 written prescriptions given to patient. All belongings with patient. IV removed without complications, catheter tip in-tact. Patient ambulated off of unit, family waiting at front door.
== END 2018-08-02 17:05 | disposition home or self-care (01) | DRG 439 ==
LOC: ER 06:02 → 2 SOUTH 07:45
PROVIDERS: ADMIT Internal Medicine; ATTEND Internal Medicine
DX: K85.90 Acute pancreatitis without necrosis or infection, unspecified (principal); R65.10 Systemic inflammatory response syndrome (SIRS) of non-infectious origin without acute organ dysfunction; R07.89 Other chest pain; E03.9 Hypothyroidism, unspecified; M19.90 Unspecified osteoarthritis, unspecified site; E78.5 Hyperlipidemia, unspecified; E88.81 Metabolic syndrome and other insulin resistance; F17.210 Nicotine dependence, cigarettes, uncomplicated; I10 Essential (primary) hypertension; K76.0 Fatty (change of) liver, not elsewhere classified; Z82.49 Family history of ischemic heart disease and other diseases of the circulatory system; Z88.0 Allergy status to penicillin
CPT/HCPCS: 36415; 71045; 74177; 76700; 80048; 80053; 80061; 80307; 83690; 83735; 83880; 84439; 84443; 84481; 84484; 85025; 85379; 93005; 93306; 96361; 96374; 96375; J0360; J2270; J2405; J3490; J7030; Q0163; Q9967; 99285-25

== ENCOUNTER → 2020-02-10 | Outpatient (CLI) | payer OTHER ==
[~2020-02-10] MED LIST: AMLO-187 PO; ASPI81TA50 PO; ATOR20TA58 PO; CHLO25TA10 PO; GLUC-126 PO; LOSA100T14 PO; MULT-445 PO; OMEP20TA63 PO
--- NOTE | 2020-02-10 12:19 | KCIC ---
KNEE RIGHT 4V 02/10/2020 12:00 AM INDICATION: Right knee pain for one year COMPARISON: None available. TECHNIQUE: 4 views of the right knee are provided. FINDINGS/ IMPRESSION: 1. Curvilinear ossific fragment along the medial femoral condyle may reflect calcification of the medial collateral ligament, Haylee-Stieda lesion. 2. Joint spaces are maintained. No acute fracture or dislocation. Subcortical cystic change identified along the inner surface of the patella. 3. Small knee joint effusion. Electronically signed by: Lesley Atkinson MD (02/10/2020 12:16 PM) [id number]
== END ==
LOC: KCIC 11:01
PROVIDERS: ATTEND Nurse Practitioner Family
DX: M25.461 Effusion, right knee (principal)
CPT/HCPCS: 73564

== ENCOUNTER → 2020-03-22 | Outpatient (CLI) | payer OTHER ==
--- NOTE | 2020-03-22 16:07 | KCIC ---
EXAMINATION: MRI RIGHT LOWER EXTREMITY JOINT W INDICATIONS: Right knee pain since July 2018. Pain around patella, some instability. TECHNIQUE: Multiplanar multisequence MRI of the right knee was obtained without contrast. COMPARISON: None. FINDINGS: MENISCI: The medial and lateral menisci are intact. LIGAMENTS: The anterior and posterior cruciate ligaments are intact. The lateral collateral ligament complex is intact. The medial collateral ligament is thickened and there is ossification at the femo ral attachment, consistent with old injury. EXTENSOR MECHANISM: Quadriceps and patellar tendons are intact. Retinacula are intact. There is mercedez a in the lateral aspect of Hoffa's fat pad. Suprapatellar fat pad is normal. There is mild lateral ti lt of the patella. BONES AND CARTILAGE: There is deep partial and full-thickness cartilage loss centered around the med bandar ridge and along the medial patellar facet with subchondral cysts. Trochlear cartilage is intact. There is superficial partial thickness cartilage loss along the inner weightbearing and posterior non weightbearing lateral femoral condyle. Lateral tibial plateau cartilage is intact. Medial compartment cartilage is intact. No acute fracture or osseous lesion. OTHER: Small joint effusion with mild synovitis. No significant Kerr cyst. Muscles and remaining te ndons are intact. IMPRESSION: 1. Patellofemoral and lateral compartment cartilage loss, greatest in the patellofemoral compartment where there are areas of deep partial and full-thickness cartilage loss and subchondral cysts. 2. Old MCL injury. 3. Edema in the lateral aspect of Hoffa's fat pad, nonspecific but could be seen with impingement. 4. Lateral tilt of the patella. 5. Small joint effusion with mild synovitis Electronically signed by: Suha Giraldo MD (03/22/2020 4:05 PM) [id number]
== END ==
LOC: KCIC MRI 12:19
PROVIDERS: ATTEND Orthopaedic Surgery
DX: M25.461 Effusion, right knee (principal); M65.88 Other synovitis and tenosynovitis, other site; M25.861 Other specified joint disorders, right knee
CPT/HCPCS: 73721